=== PATIENT | male | born 1960 | race Caucasian/White ===

== ENCOUNTER 2016-06-29 12:29 | Emergency (ER) | payer BC, OTHER ==
[2016-06-29 12:59] LABS: BASO % 0.4 % (0.0-1.0); EOS # 0.1 K/mm3 (0.0-0.50); LARGE UNSTAINED CELL # 0.1 K/mm3 (0.0-0.4); LARGE UNSTAINED CELL % 2.1 % (0.0-4.0); LYMPH # 1.6 K/mm3 (1.5-4.5); LYMPH % 26.8 % (24.0-44.0); MEAN CORPUSCULAR HEMOGLOBIN 31.6 pg (27.0-33.0); MEAN CORPUSCULAR HGB CONC 34.9 g/dl (32.0-36.5); MEAN CORPUSCULAR VOLUME 90.5 fl (80.0-96.0); MONO # 0.4 K/mm3 (0.0-0.8); MONO % 6.9 % (0.0-5.0); NEUTROPHILS # 3.6 K/mm3 (1.8-7.7); NEUTROPHILS % 61.8 % (36.0-66.0); PLATELET COUNT, AUTOMATED 167 k/mm3 (150-450); RED CELL DISTRIBUTION WIDTH 12.1 % (11.5-14.5); WHITE BLOOD COUNT 5.8 K/mm3 (4.0-10.0)
[2016-06-29] MEDS ORDERED: ASPIRIN 81 MG CHEW TABLET As Ordered ONE (13:05)
[2016-06-29 13:06] LABS: INR 0.96
[2016-06-29 13:19] LABS: ANION GAP 9 MEQ/L (8-16); BLOOD UREA NITROGEN 24 MG/DL (7-18); CALCIUM LEVEL 8.5 MG/DL (8.5-10.1); CARBON DIOXIDE LEVEL 25 MEQ/L (21-32); CHLORIDE LEVEL 109 MEQ/L (98-107); CREATININE FOR GFR 1.04 MG/DL (0.70-1.30); GLOMERULAR FILTRATION RATE > 60.0 (>56); GLUCOSE, FASTING 91 MG/DL (70-105); POTASSIUM SERUM 3.9 MEQ/L (3.5-5.1); SODIUM LEVEL 143 MEQ/L (136-145)
--- NOTE | 2016-06-29 13:25 | REP ---
SINGLE VIEW CHEST: COMPARISON: 03/04/2015. There is no evidence of acute infiltrate. No pleural effusion is seen. The heart is normal in size. The mediastinal silhouette is unremarkable. The visualized osseous structures are intact. IMPRESSION: No acute pulmonary disease. Signed by Carl Mares MD 06/29/2016 03:22 P
--- NOTE | 2016-06-29 18:54 | EDDOCDS ---
Physician Documentation [facility] Name: Lorenzo Sprague Age: 55 yrs Sex: Male : 1960 Arrival Date: 06/29/2016 Time: 12:29 Bed 15 Private MD: Disposition: 06/29/16 18:41 Discharged to Home/Self Care. Impression: Chest pain, unspecified. - Condition is Stable. - Discharge Instructions: Nonspecific Chest Pain. - Medication Reconciliation, Local Pharmacy Hours form. - Follow up: Private Physician; When: 4 - 5 days; Reason: Recheck today's complaints, Continuance of care. Follow up: Lorenzo Carvalho; When: Call to arrange an appointment; Reason: Further diagnostic work-up, Recheck today's complaints, Continuance of care. - Problem is an ongoing problem. - Symptoms are unchanged. Historical: - Allergies: no known allergies; - Home Meds: 1. aspirin 81 mg Oral tab 1 tab once daily (Last dose: 06/29/2016) 2. Multivitamin Oral daily 3. med for cholerterol daily - PMHx: Hypercholesterolemia; - PSHx: none; - Social history: No barriers to communication noted, The patient speaks fluent Syriac, Smoking status: Patient states was never smoker of tobacco. - Family history: Not pertinent. - : The pt / caregiver states he / she is not on anticoagulants. Home medication list is obtained from the patient. - Exposure Risk Screening:: None identified. Vital Signs: 06/29 12:32 BP 142 / 87 (auto/); pml 12:34 Pulse 76 MON; Pulse Ox 95% ; pml 12:36 BP 142 / 87; Pulse 60; Resp 16; Pulse Ox 97% on R/A; Weight 83.46 kg / 184 lbs (R); kr3 Height 5 ft. 8 in. (172.72 cm) (R); 12:47 Pulse 64 MON; Pulse Ox 96% ; pml 12:47 BP 142 / 80 (auto/); pml 13:02 Pulse 62 MON; Pulse Ox 96% ; pml 13:02 BP 144 / 85 (auto/); pml 13:12 Pain 2/10; pml 13:16 Pulse 74 MON; Pulse Ox 94% ; pml 13:16 BP 118 / 69 (auto/); pml 13:17 Pulse 68 MON; Pulse Ox 94% ; pml 13:17 BP 117 / 70 (auto/); pml 13:32 Pulse 70 MON; Pulse Ox 95% ; pml 13:32 BP 112 / 62 (auto/); pml 13:47 Pulse 62 MON; Pulse Ox 96% ; pml 13:47 BP 108 / 69 (auto/); pml 14:02 Pulse 60 MON; Pulse Ox 95% ; pml 14:02 BP 102 / 69 (auto/); pml 14:17 Pulse 60 MON; Pulse Ox 96% ; pml 14:17 BP 107 / 73 (auto/); pml 14:32 BP 111 / 74 (auto/); jmb 14:32 Pulse 60 MON; Pulse Ox 96% ; jmb 14:48 BP 125 / 77 (auto/); jmb 14:48 Pulse 54 MON; Pulse Ox 95% ; jmb 15:02 BP 130 / 76 (auto/); jmb 15:02 Pulse 58 MON; Pulse Ox 96% ; jmb 15:17 BP 131 / 74 (auto/); jmb 15:17 Pulse 58 MON; Pulse Ox 96% ; jmb 15:32 BP 135 / 89 (auto/); jmb 15:32 Pulse 62 MON; Pulse Ox 96% ; jmb 15:47 BP 123 / 78 (auto/); jmb 15:47 Pulse 56 MON; Pulse Ox 95% ; jmb 16:02 BP 128 / 75 (auto/); jmb 16:02 Pulse 56 MON; Pulse Ox 95% ; jmb 16:17 BP 121 / 72 (auto/); jmb 16:17 Pulse 60 MON; Pulse Ox 95% ; jmb 16:32 BP 126 / 79 (auto/); jmb 16:32 Pulse 58 MON; Pulse Ox 96% ; jmb 16:47 BP 124 / 80 (auto/); jmb 16:47 Pulse 58 MON; Pulse Ox 94% ; jmb 17:02 BP 124 / 81 (auto/); jmb 17:02 Pulse 58 MON; Pulse Ox 95% ; jmb 17:17 BP 126 / 75 (auto/); jmb 17:17 Pulse 58 MON; Pulse Ox 94% ; jmb 17:32 BP 126 / 77 (auto/); jmb 17:32 Pulse 58 MON; Pulse Ox 95% ; jmb 17:47 BP 120 / 73 (auto/); jmb 17:47 Pulse 54 MON; Pulse Ox 96% ; jmb 18:02 BP 125 / 76 (auto/); jmb 18:02 Pulse 56 MON; Pulse Ox 96% ; jmb 18:17 BP 130 / 82 (auto/); jmb 18:17 Pulse 58 MON; Pulse Ox 95% ; jmb 18:32 BP 130 / 79 (auto/); jmb 18:32 Pulse 52 MON; Resp 18; Temp 97.0(O); Pulse Ox 95% on R/A; Pain 0/10; jmb 12:36 Body Mass Index 27.98 (83.46 kg, 172.72 cm) kr3 MDM: 12:31 ECG WITH READING ER PHYS+CARDIAG ordered. EDMS 12:50 Aspirin Chewable Tablet 324 mg PO once ordered. ke 12:50 NS 0.9% 1000 ml IV at 100 mL/hr continuous ordered. ke 12:50 Nitrostat 0.4 mg Sublingual every 5 minutes; hold if SBP<90mmHg.Document Pain Score ke Response to Each Dose x3 ordered. 12:50 Web Applications Developer/Pulse Ox/q 30 min VS ordered. ke 12:50 IV Saline Lock ordered. ke 12:50 Oxygen at 4L/Min NC or Home dosage ordered. ke 12:50 Rhythm Strip to chart ordered. ke 12:50 Undress patient appropriately for examination ordered. ke 12:51 Basic Metabolic Profile Ordered. EDMS 12:51 CBC with Diff Ordered. EDMS 12:51 Cardiac Injury Profile Ordered. EDMS 12:51 Troponin Ordered. EDMS 12:51 PT/INR Ordered. EDMS 12:52 portable chest Ordered. EDMS 13:28 Basic Metabolic Profile Reviewed. ke 13:28 CBC with Diff Reviewed. ke 13:28 Cardiac Injury Profile Reviewed. ke 13:28 Troponin Reviewed. ke 13:28 PT/INR Reviewed. ke 13:30 Redraw CIP &Troponin (put time in details section) ordered. ke 13:30 Repeat EKG (put time details section) ordered. ke 13:36 Repeat EKG (put time details section) complete. jrd 13:36 Redraw CIP &Troponin (put time in details section) complete. jrd 13:36 TROPONIN Ordered. EDMS 13:36 CARDIAC INJURY PROFILE Ordered. EDMS 13:37 ECG WITH READING ER PHYS ordered. EDMS 13:59 [facility] Payment Agreement was scanned into [employer] and attached to record. jp5 13:59 Financial registration complete. [email or web address] 18:37 TROPONIN Reviewed. alyse 18:37 CARDIAC INJURY PROFILE Reviewed. alyse 18:37 portable chest Reviewed. ke Administered Medications: 13:08 Drug: Nitrostat 0.4 mg [Nitrostat 0.4 mg sublingual tablet (1 tabs)] Route: Sublingual; jjr 13:12 Follow up: Pain 2/10 Adult; Response: Pain is decreased pml 13:11 Drug: Aspirin 324 mg [aspirin 81 mg chewable tablet (4 tabs)] Route: PO; jjr 13:11 Drug: NS 0.9% 1000 ml [sodium chloride 0.9 % intravenous solution] Route: IV; Rate: 100 jjr mL/hr; Site: left antecubital; 13:16 Drug: Nitrostat 0.4 mg [Nitrostat 0.4 mg sublingual tablet (1 tabs)] Route: Sublingual; pml Signatures: Dispatcher [employer] EDMS Shyam Townsend, PROGRAMS DIRECTOR PROGRAMS DIRECTOR Isabel Hernandez,RN RN kr3 Monalisa Rubi,RN RN Nasir Becker,RN RN jmb Wily Troncoso, LOAN COUNSELOR LOAN COUNSELOR Shiv Logan jp5 Maryann Saldana RN jjr The chart was reviewed and I authenticate all verbal orders and agree with the evaluation and treatment provided.Attachments: 13:59 [facility] Payment Agreement [email or web address]
--- NOTE | 2016-06-29 18:55 | EDDOCDS ---
Nurse's Notes [facility] Name: Lorenzo Sprague Age: 55 yrs Sex: Male : 1960 Arrival Date: 06/29/2016 Time: 12:29 Bed 15 Private MD: Diagnosis: Chest pain, unspecified Presentation: 06/29 12:33 Presenting complaint: Patient states: left sided chest pain with radiation into left kr3 arm for 45 minutes. 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 Adult Sepsis Screening: The patient does not have new or worsening altered mentation. Patient's respiratory rate is less than 22. Systolic blood pressure is greater than 100. Patient has a qSOFA score of 0- Negative Sepsis Screen. Suicide/Homicide risk assessment- the patient denies having any suicidal and/or homicidal ideations and does not present with any other emotional, behavioral or mental health complaints. 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 Transition of care: patient was not received from another setting of care. Red Flag criteria, patient assessed and taken directly to a bed. 12:33 Acuity: DEISI Level 2 kr3 12:33 Method Of Arrival: Wheelchair kr3 Triage Assessment: 12:36 General: Appears in no apparent distress, Behavior is appropriate for age, cooperative. kr3 Pain: Location: chest Pain currently is 0 out of 10 on a pain scale. At worst was 6 out of 10 on a pain scale. Pain radiates to left arm Is episodic. Pt Declines HIV testing. Cardiovascular: Chest pain is described as vague, radiates to left arm(s) episodes are intermittent began all morning. Respiratory: Respiratory effort is even, unlabored. GI: Denies nausea. Derm: Skin is normal. Historical: - Allergies: no known allergies; - Home Meds: 1. aspirin 81 mg Oral tab 1 tab once daily (Last dose: 06/29/2016) 2. Multivitamin Oral daily 3. med for cholerterol daily - PMHx: Hypercholesterolemia; - PSHx: none; - Social history: No barriers to communication noted, The patient speaks fluent Lao, Smoking status: Patient states was never smoker of tobacco. - Family history: Not pertinent. - : The pt / caregiver states he / she is not on anticoagulants. Home medication list is obtained from the patient. - Exposure Risk Screening:: None identified. Screenin:48 Screening information is obtained from the patient. Fall risk: No risks identified. pml Assistance ADL's: requires no assistance with activities of daily living. Abuse/DV Screen: The patient / caregiver reports he/she is: not in a situation that causes fear, pain or injury. Nutritional screening: No deficits noted. Advance Directives: Currently, there is no health care proxy. home support is adequate. Assessment: 12:48 General: Appears in no apparent distress, Behavior is appropriate for age, cooperative. pml Pain: Location: left arm Pain currently is 2 out of 10 on a pain scale. Quality of pain is described as aching, tingling. Neurological: Level of Consciousness is awake, alert, Oriented to person, place, time. Cardiovascular: Capillary refill < 3 seconds Rhythm is sinus rhythm No ectopy. Chest pain is described as severe, episodes are intermittent began one month ago with episodes of chest pain and indigestion which have resolved. today chest pain was worse than pt has experienced in past with more discomfort in left arm. chest pain is currently resolved while resting on stretcher but arm discomfort persists. Respiratory: Airway is patent Respiratory effort is even, unlabored, Respiratory pattern is regular, symmetrical, Breath sounds are clear bilaterally. Breath sounds are diminished in left posterior lower lobe. GI: Abdomen is non- distended Reports indigestion, nausea. Derm: Skin is pink, warm & dry. 13:07 General: reports brief episode of pain in mid chest radiating into left arm. medicated pml as indicated on emar. . 13:18 General: chest pain resolved, pain in left arm persists, 2/10. pml 13:29 General: reports pain in left arm is improved. resting quietly on stretcher, family at pml bedside. sinus rhythm on monitor, skin p/w/d. resps easy and unlabored.. 14:23 General: Appears in no apparent distress, Behavior is appropriate for age, cooperative. pml Pain: Denies pain. Neurological: Level of Consciousness is awake, alert, Oriented to person, place, time. Cardiovascular: Capillary refill < 3 seconds Rhythm is sinus rhythm No ectopy. Respiratory: Airway is patent Respiratory effort is even, unlabored. Derm: Skin is pink, warm & dry. 15:15 General: Appears in no apparent distress, comfortable, Behavior is appropriate for age, jmb cooperative. Pain: Denies pain. Neurological: Level of Consciousness is awake, alert, obeys commands, Oriented to person, place, time, Manager Domestic are equal bilaterally Speech is normal, Facial symmetry appears normal, Facial symmetry: tongue is midline. Cardiovascular: Capillary refill < 3 seconds Heart tones present Pulses are all present. Rhythm is sinus rhythm No ectopy. Respiratory: Airway is patent Respiratory effort is even, unlabored, Respiratory pattern is regular, symmetrical, Breath sounds are clear bilaterally. GI: Abdomen is non- distended Bowel sounds present X 4 quads. Abd is soft and non tender X 4 quads. Derm: Skin is pink, warm & dry. Musculoskeletal: Range of motion intact in all extremities. 15:54 General: Appears in no apparent distress, comfortable, Behavior is appropriate for age, jmb cooperative, Patient sitting on stretcher with family at bedside. NO voiced complaints at this time. . Neurological: Level of Consciousness is awake, alert, obeys commands, Oriented to person, place, time. Respiratory: Airway is patent Respiratory effort is even, unlabored, Respiratory pattern is regular, symmetrical. 17:08 General: Appears in no apparent distress, comfortable, Behavior is appropriate for age, jmb cooperative. Neurological: Level of Consciousness is awake, alert, obeys commands, Oriented to person, place, time. Respiratory: Airway is patent Respiratory effort is even, unlabored, Respiratory pattern is regular, symmetrical. 17:43 General: Appears in no apparent distress, comfortable, Behavior is appropriate for age, jmb cooperative, Patient laying on stretcher, labs drawn per provider orders. Patient denies pain and voices no complaints at this time. . Neurological: Level of Consciousness is awake, alert, obeys commands, Oriented to person, place, time. Respiratory: Airway is patent Respiratory effort is even, unlabored, Respiratory pattern is regular, symmetrical. 18:46 General: Patient instructed on discharge instructions. Patient asked if there were any b questions regarding discharge, patient stated no. IV discontinued per hospital policy. Patient signed discharge instructions. Patient discharged in stable condition. . Vital Signs: 12:32 BP 142 / 87 (auto/); pml 12:34 Pulse 76 MON; Pulse Ox 95% ; pml 12:36 BP 142 / 87; Pulse 60; Resp 16; Pulse Ox 97% on R/A; Weight 83.46 kg (R); Height 5 ft. kr3 8 in. (172.72 cm) (R); 12:47 Pulse 64 MON; Pulse Ox 96% ; pml 12:47 BP 142 / 80 (auto/); pml 13:02 Pulse 62 MON; Pulse Ox 96% ; pml 13:02 BP 144 / 85 (auto/); pml 13:12 Pain 2/10; pml 13:16 Pulse 74 MON; Pulse Ox 94% ; pml 13:16 BP 118 / 69 (auto/); pml 13:17 Pulse 68 MON; Pulse Ox 94% ; pml 13:17 BP 117 / 70 (auto/); pml 13:32 Pulse 70 MON; Pulse Ox 95% ; pml 13:32 BP 112 / 62 (auto/); pml 13:47 Pulse 62 MON; Pulse Ox 96% ; pml 13:47 BP 108 / 69 (auto/); pml 14:02 Pulse 60 MON; Pulse Ox 95% ; pml 14:02 BP 102 / 69 (auto/); pml 14:17 Pulse 60 MON; Pulse Ox 96% ; pml 14:17 BP 107 / 73 (auto/); pml 14:32 BP 111 / 74 (auto/); jmb 14:32 Pulse 60 MON; Pulse Ox 96% ; jmb 14:48 BP 125 / 77 (auto/); jmb 14:48 Pulse 54 MON; Pulse Ox 95% ; jmb 15:02 BP 130 / 76 (auto/); jmb 15:02 Pulse 58 MON; Pulse Ox 96% ; jmb 15:17 BP 131 / 74 (auto/); jmb 15:17 Pulse 58 MON; Pulse Ox 96% ; jmb 15:32 BP 135 / 89 (auto/); jmb 15:32 Pulse 62 MON; Pulse Ox 96% ; jmb 15:47 BP 123 / 78 (auto/); jmb 15:47 Pulse 56 MON; Pulse Ox 95% ; jmb 16:02 BP 128 / 75 (auto/); jmb 16:02 Pulse 56 MON; Pulse Ox 95% ; jmb 16:17 BP 121 / 72 (auto/); jmb 16:17 Pulse 60 MON; Pulse Ox 95% ; jmb 16:32 BP 126 / 79 (auto/); jmb 16:32 Pulse 58 MON; Pulse Ox 96% ; jmb 16:47 BP 124 / 80 (auto/); jmb 16:47 Pulse 58 MON; Pulse Ox 94% ; jmb 17:02 BP 124 / 81 (auto/); jmb 17:02 Pulse 58 MON; Pulse Ox 95% ; jmb 17:17 BP 126 / 75 (auto/); jmb 17:17 Pulse 58 MON; Pulse Ox 94% ; jmb 17:32 BP 126 / 77 (auto/); jmb 17:32 Pulse 58 MON; Pulse Ox 95% ; jmb 17:47 BP 120 / 73 (auto/); jmb 17:47 Pulse 54 MON; Pulse Ox 96% ; jmb 18:02 BP 125 / 76 (auto/); jmb 18:02 Pulse 56 MON; Pulse Ox 96% ; jmb 18:17 BP 130 / 82 (auto/); jmb 18:17 Pulse 58 MON; Pulse Ox 95% ; jmb 18:32 BP 130 / 79 (auto/); jmb 18:32 Pulse 52 MON; Resp 18; Temp 97.0(O); Pulse Ox 95% on R/A; Pain 0/10; jmb 12:36 Body Mass Index 27.98 (83.46 kg, 172.72 cm) kr3 Vitals: 12:36 Log In Time: June 29, 2016 at 12:33. kr3 ED Course: 12:29 Patient visited by Michaelle Blandon. mm15 12:29 Patient moved to Waiting mm15 12:30 Patient moved to 15 kr3 12:34 Triage Initiated kr3 12:39 Patient visited by Ketty Romero PCA. jlf 12:39 Patient visited by Ketty Romero PCA. jlf 12:39 EKG done. (by ED staff). Reviewed by Cara Madgaleno MD. jlf 12:44 Shyam Townsend FNP is PHCP. ke 12:44 Patient visited by Shyam Townsend FNP. ke 12:44 Patient visited by Shyam Townsend FNP. ke 12:48 The patient / caregiver is instructed regarding the plan of care and ED course. Patient trung has correct armband on for positive identification. Placed in gown. Bed in low position. Call light in reach. Side rails up X2. 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 Pulse ox on. NIBP on. 12:48 Inserted peripheral IV: 18gauge IV in left antecubital area and blood collected. pml Patient tolerated the procedure well. 12:50 Patient visited by Monalisa Rubi,NATHAN. pml 13:30 Patient visited by Monalisa Rubi,NATHAN. pml 13:44 Patient visited by Ketty Romero PCA. jlf 13:59 [facility] Payment Agreement was scanned into [employer] and attached to record. jp5 14:03 portable chest Returned. EDMS 14:21 Patient visited by Shyam Townsend FNP. ke 14:23 Patient visited by Monalisa Rubi,NATHAN. pml 14:58 Patient visited by Shyam Townsend FNP. ke 15:16 Patient visited by Nasir Melo RN. jmb 15:45 Patient visited by Shyam Townsend FNP. ke 15:54 Patient visited by Nasir Melo RN. jmb 16:25 Patient visited by Shyam Townsend FNP. ke 17:08 Patient visited by Nasir Melo RN. jmb 17:40 Patient visited by Ketty Romero PCA. jlf 17:41 Patient visited by Ketty Romero PCA. jlf 17:41 EKG done. (by ED staff). Reviewed by Shyam IZQUIERDO. jlf 17:42 CARDIAC INJURY PROFILE Sent. jmb 17:42 TROPONIN Sent. jmb 17:43 Patient visited by Nasir Melo RN. jmb 18:17 Patient visited by Shyam Townsend FNP. ke 18:32 Discontinued lock intact, bleeding controlled, pressure dressing applied, No jmb redness/swelling at site. No procedures done that require assistance. 18:41 Lorenzo Carvalho is Referral Physician. ke Administered Medications: 13:08 Drug: Nitrostat 0.4 mg [Nitrostat 0.4 mg sublingual tablet (1 tabs)] Route: Sublingual; jjr 13:12 Follow up: Pain 2/10 Adult; Response: Pain is decreased pml 13:11 Drug: Aspirin 324 mg [aspirin 81 mg chewable tablet (4 tabs)] Route: PO; jjr 13:11 Drug: NS 0.9% 1000 ml [sodium chloride 0.9 % intravenous solution] Route: IV; Rate: 100 jjr mL/hr; Site: left antecubital; 13:16 Drug: Nitrostat 0.4 mg [Nitrostat 0.4 mg sublingual tablet (1 tabs)] Route: Sublingual; pml Order Results: Lab Order: Basic Metabolic Profile; SPEC'M 06/29/16 12:46 Test: GLUCOSE, FASTING; Value: 91; Range: 70-105; Units: MG/DL; Status: F Test: BLOOD UREA NITROGEN; Value: 24; Range: 7-18; Abnormal: Above high normal; Units: MG/DL; Status: F Test: CREATININE FOR GFR; Value: 1.04; Range: 0.70-1.30; Units: MG/DL; Status: F Test: GLOMERULAR FILTRATION RATE; Value: > 60.0; Range: >56; Status: F Test: SODIUM LEVEL; Value: 143; Range: 136-145; Units: MEQ/L; Status: F Test: POTASSIUM SERUM; Value: 3.9; Range: 3.5-5.1; Units: MEQ/L; Status: F Test: CHLORIDE LEVEL; Value: 109; Range: 98-107; Abnormal: Above high normal; Units: MEQ/L; Status: F Test: CARBON DIOXIDE LEVEL; Value: 25; Range: 21-32; Units: MEQ/L; Status: F Test: ANION GAP; Value: 9; Range: 8-16; Units: MEQ/L; Status: F Test: CALCIUM LEVEL; Value: 8.5; Range: 8.5-10.1; Units: MG/DL; Status: F Test Note: ; Units are mL/min/1.73 m2 Chronic Kidney Disease Staging per NKF: Stage I & II GFR >=60 Normal to Mildly Decreased Stage III GFR 30-59 Moderately Decreased Stage IV GFR 15-29 Severely Decreased Stage V GFR <15 Very Little GFR Left ESRD GFR <15 on JOINERS SUPERVISOR Lab Order: CBC with Diff; SPEC'M 06/29/16 12:46 Test: WHITE BLOOD COUNT; Value: 5.8; Range: 4.0-10.0; Units: K/mm3; Status: F Test: RED BLOOD COUNT; Value: 4.86; Range: 4.30-6.10; Units: M/mm3; Status: F Test: HEMOGLOBIN; Value: 15.3; Range: 14.0-18.0; Units: g/dl; Status: F Test: HEMATOCRIT; Value: 43.9; Range: 42.0-52.0; Units: %; Status: F Test: MEAN CORPUSCULAR VOLUME; Value: 90.5; Range: 80.0-96.0; Units: fl; Status: F Test: MEAN CORPUSCULAR HEMOGLOBIN; Value: 31.6; Range: 27.0-33.0; Units: pg; Status: F Test: MEAN CORPUSCULAR HGB CONC; Value: 34.9; Range: 32.0-36.5; Units: g/dl; Status: F Test: RED CELL DISTRIBUTION WIDTH; Value: 12.1; Range: 11.5-14.5; Units: %; Status: F Test: PLATELET COUNT, AUTOMATED; Value: 167; Range: 150-450; Units: k/mm3; Status: F Test: NEUTROPHILS %; Value: 61.8; Range: 36.0-66.0; Units: %; Status: F Test: LYMPH %; Value: 26.8; Range: 24.0-44.0; Units: %; Status: F Test: MONO %; Value: 6.9; Range: 0.0-5.0; Abnormal: Above high normal; Units: %; Status: F Test: EOS %; Value: 2.0; Range: 0.0-3.0; Units: %; Status: F Test: BASO %; Value: 0.4; Range: 0.0-1.0; Units: %; Status: F Test: LARGE UNSTAINED CELL %; Value: 2.1; Range: 0.0-4.0; Units: %; Status: F Test: NEUTROPHILS #; Value: 3.6; Range: 1.8-7.7; Units: K/mm3; Status: F Test: LYMPH #; Value: 1.6; Range: 1.5-4.5; Units: K/mm3; Status: F Test: MONO #; Value: 0.4; Range: 0.0-0.8; Units: K/mm3; Status: F Test: EOS #; Value: 0.1; Range: 0.0-0.50; Units: K/mm3; Status: F Test: BASO #; Value: 0.0; Range: 0.0-0.2; Units: K/mm3; Status: F Test: LARGE UNSTAINED CELL #; Value: 0.1; Range: 0.0-0.4; Units: K/mm3; Status: F Lab Order: Cardiac Injury Profile; [facility]' 06/29/16 12:46 Test: CPK CREATINE PHOSPHOKINASE; Value: 333; Range: 39-308; Abnormal: Above high normal; Units: U/L; Status: F Test: CK-MB VALUE MASS; Value: 2.8; Range: 0.0-3.6; Units: NG/ML; Status: F Test: MB/CK RELATIVE INDEX; Value: 0.84; Range: < OR =4; Status: F Test Note: ; DIAGNOSIS CRITERIA MMB ng/ml Relative Index (RI) NON-AMI < or = 5 N/A MARES ZONE > 5 < or = 4 AMI > 5 > 4 Lab Order: Troponin; SPEC' 06/29/16 12:46 Test: TROPONIN I; Value: < 0.02; Range: < 0.10; Units: NG/ML; Status: F Test Note: ; Troponin I Reference Interval for [employer] LOCI: 99th Percentile= 0.00-0.045 ng/ml Risk Stratification: <= 0.10 ng/ml Decreased Risk for Adverse Clinical Events. 0.10-1.50 ng/ml Increased Risk for Adverse Clinical Events. Evaluation of additional criterion and/or repeat testing in 2-6 hours is suggested to rule out myocardial damage. >= 1.50 ng/ml Indicative of Myocardial Injury. Lab Order: PT/INR; [facility]' 06/29/16 12:46 Test: PROTHROMBIN TIME; Value: 12.9; Range: 12.3-14.5; Units: SECONDS; Status: F Test: INR; Value: 0.96; Status: F Test Note: ; THERAPUTIC HUMAN INR VALUES INDICATIONS NORMAL RANGES PROPHYLAXIS/TREATMENT OF: VENOUS THROMBOSIS 2.0-3.0 PULMONARY EMBOLISM 2.0-3.0 PREVENTION OF SYSTEMIC EMBOLISM FROM: TISSUE HEART VALVES 2.0-3.0 ACUTE MYOCARDIAL INFARCTION 2.0-3.0 VALVULAR HEART DISEASE 2.0-3.0 ATRIAL FIBRILLATION 2.0-3.0 MECHANICAL VALVES(HIGH RISK) 2.5-3.5 RECURRENT MYOCARDIAL INFARCTION 2.5-3.5 Lab Order: TROPONIN; SPEC'M 06/29/16 17:41 Test: TROPONIN I; Value: < 0.02; Range: < 0.10; Units: NG/ML; Status: F Test Note: ; Troponin I Reference Interval for [employer] [place] LOCI: 99th Percentile= 0.00-0.045 ng/ml Risk Stratification: <= 0.10 ng/ml Decreased Risk for Adverse Clinical Events. 0.10-1.50 ng/ml Increased Risk for Adverse Clinical Events. Evaluation of additional criterion and/or repeat testing in 2-6 hours is suggested to rule out myocardial damage. >= 1.50 ng/ml Indicative of Myocardial Injury. Lab Order: CARDIAC INJURY PROFILE; SPEC'M 06/29/16 17:41 Test: CPK CREATINE PHOSPHOKINASE; Value: 289; Range: 39-308; Units: U/L; Status: F Test: CK-MB VALUE MASS; Value: 2.5; Range: 0.0-3.6; Units: NG/ML; Status: F Test: MB/CK RELATIVE INDEX; Value: 0.86; Range: < OR =4; Status: F Test Note: ; DIAGNOSIS CRITERIA MMB ng/ml Relative Index (RI) NON-AMI < or = 5 N/A MARES ZONE > 5 < or = 4 AMI > 5 > 4 Radiology Order: portable chest Test: portable chest REASON FOR EXAMINATION: Chest Pain; SINGLE VIEW CHEST:; ; COMPARISON: 03/04/2015.; ; There is no evidence of acute infiltrate.; ; No pleural effusion is seen.; ; The heart is normal in size.; ; The mediastinal silhouette is unremarkable.; ; The visualized osseous structures are intact.; ; IMPRESSION:; ; No acute pulmonary disease.; ; ; Signed by; Carl Mares MD 06/29/2016 03:22 P; Outcome: 18:32 Discharge Assessment: Patient awake, alert and oriented x 3. No cognitive and/or jmb functional deficits noted. Patient verbalized understanding of disposition instructions. Patient awake and alert. obeys commands, Oriented to person, place and time. Patient verbalized understanding of disposition instructions. Patient has no functional deficits. patient administered narcotics - no. The following High Risk Discharge criteria are identified: None. Discharged to home ambulatory, with significant other. Condition: stable. Discharge instructions given to patient, Instructed on discharge instructions, follow up and referral plans. Demonstrated understanding of instructions, Pt was receptive of discharge instructions/ teaching. No special radiology studies were completed. Property sent home with patient. 18:41 Discharge ordered by Provider. alyse 18:54 Patient left the ED. ar Signatures: Dispatcher [employer] EDMS Shyam Townsend FNP CERTIFIED NURSES' AIDE Isabel Hernandez,RN RN kr3 Maryann Saldana, RN RN Monalisa Segura,RN Michaelle Leija mm15 Nasir Melo,RN RN eKtty Chapin PCA MUCK MINER BLASTING Shiv Cisneros jp5 MTDD
--- NOTE | 2016-07-01 08:13 | ECGEPIP ---
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
--- NOTE | 2016-07-01 19:55 | EDDOCDS ---
Nurse's Notes [facility] Name: Armani Luo Age: 55 yrs Sex: Male : 1960 Arrival Date: 06/29/2016 Time: 12:29 Bed 15 Private MD: Diagnosis: Chest pain, unspecified Presentation: 06/29 12:33 Presenting complaint: Patient states: left sided chest pain with radiation into left kr3 arm for 45 minutes. 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 Adult Sepsis Screening: The patient does not have new or worsening altered mentation. Patient's respiratory rate is less than 22. Systolic blood pressure is greater than 100. Patient has a qSOFA score of 0- Negative Sepsis Screen. Suicide/Homicide risk assessment- the patient denies having any suicidal and/or homicidal ideations and does not present with any other emotional, behavioral or mental health complaints. Status: Patient is not a real estate services coordinator or dependent. Transition of care: patient was not received from another setting of care. Red Flag criteria, patient assessed and taken directly to a bed. 12:33 Acuity: DEISI Level 2 kr3 12:33 Method Of Arrival: Wheelchair kr3 Triage Assessment: 12:36 General: Appears in no apparent distress, Behavior is appropriate for age, cooperative. kr3 Pain: Location: chest Pain currently is 0 out of 10 on a pain scale. At worst was 6 out of 10 on a pain scale. Pain radiates to left arm Is episodic. Pt Declines HIV testing. Cardiovascular: Chest pain is described as vague, radiates to left arm(s) episodes are intermittent began all morning. Respiratory: Respiratory effort is even, unlabored. GI: Denies nausea. Derm: Skin is normal. Historical: - Allergies: no known allergies; - Home Meds: 1. aspirin 81 mg Oral tab 1 tab once daily (Last dose: 06/29/2016) 2. Multivitamin Oral daily 3. med for cholerterol daily - PMHx: Hypercholesterolemia; - PSHx: none; - Social history: No barriers to communication noted, The patient speaks fluent Occitan, Smoking status: Patient states was never smoker of tobacco. - Family history: Not pertinent. - : The pt / caregiver states he / she is not on anticoagulants. Home medication list is obtained from the patient. - Exposure Risk Screening:: None identified. Screenin:48 Screening information is obtained from the patient. Fall risk: No risks identified. pml Assistance ADL's: requires no assistance with activities of daily living. Abuse/DV Screen: The patient / caregiver reports he/she is: not in a situation that causes fear, pain or injury. Nutritional screening: No deficits noted. Advance Directives: Currently, there is no health care proxy. home support is adequate. Assessment: 12:48 General: Appears in no apparent distress, Behavior is appropriate for age, cooperative. pml Pain: Location: left arm Pain currently is 2 out of 10 on a pain scale. Quality of pain is described as aching, tingling. Neurological: Level of Consciousness is awake, alert, Oriented to person, place, time. Cardiovascular: Capillary refill < 3 seconds Rhythm is sinus rhythm No ectopy. Chest pain is described as severe, episodes are intermittent began one month ago with episodes of chest pain and indigestion which have resolved. today chest pain was worse than pt has experienced in past with more discomfort in left arm. chest pain is currently resolved while resting on stretcher but arm discomfort persists. Respiratory: Airway is patent Respiratory effort is even, unlabored, Respiratory pattern is regular, symmetrical, Breath sounds are clear bilaterally. Breath sounds are diminished in left posterior lower lobe. GI: Abdomen is non- distended Reports indigestion, nausea. Derm: Skin is pink, warm & dry. 13:07 General: reports brief episode of pain in mid chest radiating into left arm. medicated pml as indicated on emar. . 13:18 General: chest pain resolved, pain in left arm persists, 2/10. pml 13:29 General: reports pain in left arm is improved. resting quietly on stretcher, family at pml bedside. sinus rhythm on monitor, skin p/w/d. resps easy and unlabored.. 14:23 General: Appears in no apparent distress, Behavior is appropriate for age, cooperative. pml Pain: Denies pain. Neurological: Level of Consciousness is awake, alert, Oriented to person, place, time. Cardiovascular: Capillary refill < 3 seconds Rhythm is sinus rhythm No ectopy. Respiratory: Airway is patent Respiratory effort is even, unlabored. Derm: Skin is pink, warm & dry. 15:15 General: Appears in no apparent distress, comfortable, Behavior is appropriate for age, jmb cooperative. Pain: Denies pain. Neurological: Level of Consciousness is awake, alert, obeys commands, Oriented to person, place, time, [place] are equal bilaterally Speech is normal, Facial symmetry appears normal, Facial symmetry: tongue is midline. Cardiovascular: Capillary refill < 3 seconds Heart tones present Pulses are all present. Rhythm is sinus rhythm No ectopy. Respiratory: Airway is patent Respiratory effort is even, unlabored, Respiratory pattern is regular, symmetrical, Breath sounds are clear bilaterally. GI: Abdomen is non- distended Bowel sounds present X 4 quads. Abd is soft and non tender X 4 quads. Derm: Skin is pink, warm & dry. Musculoskeletal: Range of motion intact in all extremities. 15:54 General: Appears in no apparent distress, comfortable, Behavior is appropriate for age, jmb cooperative, Patient sitting on stretcher with family at bedside. NO voiced complaints at this time. . Neurological: Level of Consciousness is awake, alert, obeys commands, Oriented to person, place, time. Respiratory: Airway is patent Respiratory effort is even, unlabored, Respiratory pattern is regular, symmetrical. 17:08 General: Appears in no apparent distress, comfortable, Behavior is appropriate for age, jmb cooperative. Neurological: Level of Consciousness is awake, alert, obeys commands, Oriented to person, place, time. Respiratory: Airway is patent Respiratory effort is even, unlabored, Respiratory pattern is regular, symmetrical. 17:43 General: Appears in no apparent distress, comfortable, Behavior is appropriate for age, jmb cooperative, Patient laying on stretcher, labs drawn per provider orders. Patient denies pain and voices no complaints at this time. . Neurological: Level of Consciousness is awake, alert, obeys commands, Oriented to person, place, time. Respiratory: Airway is patent Respiratory effort is even, unlabored, Respiratory pattern is regular, symmetrical. 18:46 General: Patient instructed on discharge instructions. Patient asked if there were any b questions regarding discharge, patient stated no. IV discontinued per hospital policy. Patient signed discharge instructions. Patient discharged in stable condition. . Vital Signs: 12:32 BP 142 / 87 (auto/); pml 12:34 Pulse 76 MON; Pulse Ox 95% ; pml 12:36 BP 142 / 87; Pulse 60; Resp 16; Pulse Ox 97% on R/A; Weight 83.46 kg (R); Height 5 ft. kr3 8 in. (172.72 cm) (R); 12:47 Pulse 64 MON; Pulse Ox 96% ; pml 12:47 BP 142 / 80 (auto/); pml 13:02 Pulse 62 MON; Pulse Ox 96% ; pml 13:02 BP 144 / 85 (auto/); pml 13:12 Pain 2/10; pml 13:16 Pulse 74 MON; Pulse Ox 94% ; pml 13:16 BP 118 / 69 (auto/); pml 13:17 Pulse 68 MON; Pulse Ox 94% ; pml 13:17 BP 117 / 70 (auto/); pml 13:32 Pulse 70 MON; Pulse Ox 95% ; pml 13:32 BP 112 / 62 (auto/); pml 13:47 Pulse 62 MON; Pulse Ox 96% ; pml 13:47 BP 108 / 69 (auto/); pml 14:02 Pulse 60 MON; Pulse Ox 95% ; pml 14:02 BP 102 / 69 (auto/); pml 14:17 Pulse 60 MON; Pulse Ox 96% ; pml 14:17 BP 107 / 73 (auto/); pml 14:32 BP 111 / 74 (auto/); jmb 14:32 Pulse 60 MON; Pulse Ox 96% ; jmb 14:48 BP 125 / 77 (auto/); jmb 14:48 Pulse 54 MON; Pulse Ox 95% ; jmb 15:02 BP 130 / 76 (auto/); jmb 15:02 Pulse 58 MON; Pulse Ox 96% ; jmb 15:17 BP 131 / 74 (auto/); jmb 15:17 Pulse 58 MON; Pulse Ox 96% ; jmb 15:32 BP 135 / 89 (auto/); jmb 15:32 Pulse 62 MON; Pulse Ox 96% ; jmb 15:47 BP 123 / 78 (auto/); jmb 15:47 Pulse 56 MON; Pulse Ox 95% ; jmb 16:02 BP 128 / 75 (auto/); jmb 16:02 Pulse 56 MON; Pulse Ox 95% ; jmb 16:17 BP 121 / 72 (auto/); jmb 16:17 Pulse 60 MON; Pulse Ox 95% ; jmb 16:32 BP 126 / 79 (auto/); jmb 16:32 Pulse 58 MON; Pulse Ox 96% ; jmb 16:47 BP 124 / 80 (auto/); jmb 16:47 Pulse 58 MON; Pulse Ox 94% ; jmb 17:02 BP 124 / 81 (auto/); jmb 17:02 Pulse 58 MON; Pulse Ox 95% ; jmb 17:17 BP 126 / 75 (auto/); jmb 17:17 Pulse 58 MON; Pulse Ox 94% ; jmb 17:32 BP 126 / 77 (auto/); jmb 17:32 Pulse 58 MON; Pulse Ox 95% ; jmb 17:47 BP 120 / 73 (auto/); jmb 17:47 Pulse 54 MON; Pulse Ox 96% ; jmb 18:02 BP 125 / 76 (auto/); jmb 18:02 Pulse 56 MON; Pulse Ox 96% ; jmb 18:17 BP 130 / 82 (auto/); jmb 18:17 Pulse 58 MON; Pulse Ox 95% ; jmb 18:32 BP 130 / 79 (auto/); jmb 18:32 Pulse 52 MON; Resp 18; Temp 97.0(O); Pulse Ox 95% on R/A; Pain 0/10; jmb 12:36 Body Mass Index 27.98 (83.46 kg, 172.72 cm) kr3 Vitals: 12:36 Log In Time: June 29, 2016 at 12:33. kr3 ED Course: 12:29 Patient visited by Michaelle Blandon. mm15 12:29 Patient moved to Waiting mm15 12:30 Patient moved to 15 kr3 12:34 Triage Initiated kr3 12:39 Patient visited by Ketty Romero PCA. jlf 12:39 Patient visited by Ketty Romero PCA. jlf 12:39 EKG done. (by ED staff). Reviewed by Cara Magdaleno MD. jlf 12:44 Shyam Townsend FNP is PHCP. ke 12:44 Patient visited by Shyam Townsend FNP. ke 12:44 Patient visited by Shyam Townsend FNP. ke 12:48 The patient / caregiver is instructed regarding the plan of care and ED course. Patient trung has correct armband on for positive identification. Placed in gown. Bed in low position. Call light in reach. Side rails up X2. pvc monitor on. Pulse ox on. NIBP on. 12:48 Inserted peripheral IV: 18gauge IV in left antecubital area and blood collected. pml Patient tolerated the procedure well. 12:50 Patient visited by Monalisa Rubi,NATHAN. pml 13:30 Patient visited by Monalisa Rubi,NATHAN. pml 13:44 Patient visited by Ketty Romero PCA. jlf 13:59 [facility] Payment Agreement was scanned into [employer] and attached to record. jp5 14:03 portable chest Returned. EDMS 14:21 Patient visited by Shyam Townsend FNP. ke 14:23 Patient visited by Monalisa Rubi,NATHAN. pml 14:58 Patient visited by Shyam Townsend FNP. ke 15:16 Patient visited by Nasir Melo RN. jmb 15:45 Patient visited by Shyam Townsend FNP. ke 15:54 Patient visited by Nasir Melo RN. jmb 16:25 Patient visited by Shyam Townsend FNP. ke 17:08 Patient visited by Nasir Melo RN. jmb 17:40 Patient visited by Ketty Romero PCA. jlf 17:41 Patient visited by Ketty Romero PCA. jlf 17:41 EKG done. (by ED staff). Reviewed by Shyam IZQUIERDO. jlf 17:42 CARDIAC INJURY PROFILE Sent. jmb 17:42 TROPONIN Sent. jmb 17:43 Patient visited by Nasir Melo RN. jmb 18:17 Patient visited by Shyam Townsend FNP. ke 18:32 Discontinued lock intact, bleeding controlled, pressure dressing applied, No jmb redness/swelling at site. No procedures done that require assistance. 18:41 Armani Carvalho is Referral Physician. ke 06/30 08:04 T-Sheet-- Draft Copy was scanned into [employer] and attached to record. gb 13:07 ECG/EKG was scanned into [employer] and attached to record. gb 07/01 08:38 EKG-ADULT Returned. EDMS Administered Medications: 06/29 13:08 Drug: Nitrostat 0.4 mg [Nitrostat 0.4 mg sublingual tablet (1 tabs)] Route: Sublingual; jjr 13:12 Follow up: Pain 2/10 Adult; Response: Pain is decreased pml 13:11 Drug: Aspirin 324 mg [aspirin 81 mg chewable tablet (4 tabs)] Route: PO; jjr 13:11 Drug: NS 0.9% 1000 ml [sodium chloride 0.9 % intravenous solution] Route: IV; Rate: 100 jjr mL/hr; Site: left antecubital; 13:16 Drug: Nitrostat 0.4 mg [Nitrostat 0.4 mg sublingual tablet (1 tabs)] Route: Sublingual; pml Order Results: Lab Order: Basic Metabolic Profile; SPEC'M 06/29/16 12:46 Test: GLUCOSE, FASTING; Value: 91; Range: 70-105; Units: MG/DL; Status: F Test: BLOOD UREA NITROGEN; Value: 24; Range: 7-18; Abnormal: Above high normal; Units: MG/DL; Status: F Test: CREATININE FOR GFR; Value: 1.04; Range: 0.70-1.30; Units: MG/DL; Status: F Test: GLOMERULAR FILTRATION RATE; Value: > 60.0; Range: >56; Status: F Test: SODIUM LEVEL; Value: 143; Range: 136-145; Units: MEQ/L; Status: F Test: POTASSIUM SERUM; Value: 3.9; Range: 3.5-5.1; Units: MEQ/L; Status: F Test: CHLORIDE LEVEL; Value: 109; Range: 98-107; Abnormal: Above high normal; Units: MEQ/L; Status: F Test: CARBON DIOXIDE LEVEL; Value: 25; Range: 21-32; Units: MEQ/L; Status: F Test: ANION GAP; Value: 9; Range: 8-16; Units: MEQ/L; Status: F Test: CALCIUM LEVEL; Value: 8.5; Range: 8.5-10.1; Units: MG/DL; Status: F Test Note: ; Units are mL/min/1.73 m2 Chronic Kidney Disease Staging per NKF: Stage I & II GFR >=60 Normal to Mildly Decreased Stage III GFR 30-59 Moderately Decreased Stage IV GFR 15-29 Severely Decreased Stage V GFR <15 Very Little GFR Left ESRD GFR <15 on DRYING RACK CHANGER Lab Order: CBC with Diff; SPEC'M 06/29/16 12:46 Test: WHITE BLOOD COUNT; Value: 5.8; Range: 4.0-10.0; Units: K/mm3; Status: F Test: RED BLOOD COUNT; Value: 4.86; Range: 4.30-6.10; Units: M/mm3; Status: F Test: HEMOGLOBIN; Value: 15.3; Range: 14.0-18.0; Units: g/dl; Status: F Test: HEMATOCRIT; Value: 43.9; Range: 42.0-52.0; Units: %; Status: F Test: MEAN CORPUSCULAR VOLUME; Value: 90.5; Range: 80.0-96.0; Units: fl; Status: F Test: MEAN CORPUSCULAR HEMOGLOBIN; Value: 31.6; Range: 27.0-33.0; Units: pg; Status: F Test: MEAN CORPUSCULAR HGB CONC; Value: 34.9; Range: 32.0-36.5; Units: g/dl; Status: F Test: RED CELL DISTRIBUTION WIDTH; Value: 12.1; Range: 11.5-14.5; Units: %; Status: F Test: PLATELET COUNT, AUTOMATED; Value: 167; Range: 150-450; Units: k/mm3; Status: F Test: NEUTROPHILS %; Value: 61.8; Range: 36.0-66.0; Units: %; Status: F Test: LYMPH %; Value: 26.8; Range: 24.0-44.0; Units: %; Status: F Test: MONO %; Value: 6.9; Range: 0.0-5.0; Abnormal: Above high normal; Units: %; Status: F Test: EOS %; Value: 2.0; Range: 0.0-3.0; Units: %; Status: F Test: BASO %; Value: 0.4; Range: 0.0-1.0; Units: %; Status: F Test: LARGE UNSTAINED CELL %; Value: 2.1; Range: 0.0-4.0; Units: %; Status: F Test: NEUTROPHILS #; Value: 3.6; Range: 1.8-7.7; Units: K/mm3; Status: F Test: LYMPH #; Value: 1.6; Range: 1.5-4.5; Units: K/mm3; Status: F Test: MONO #; Value: 0.4; Range: 0.0-0.8; Units: K/mm3; Status: F Test: EOS #; Value: 0.1; Range: 0.0-0.50; Units: K/mm3; Status: F Test: BASO #; Value: 0.0; Range: 0.0-0.2; Units: K/mm3; Status: F Test: LARGE UNSTAINED CELL #; Value: 0.1; Range: 0.0-0.4; Units: K/mm3; Status: F Lab Order: Cardiac Injury Profile; [facility]' 06/29/16 12:46 Test: CPK CREATINE PHOSPHOKINASE; Value: 333; Range: 39-308; Abnormal: Above high normal; Units: U/L; Status: F Test: CK-MB VALUE MASS; Value: 2.8; Range: 0.0-3.6; Units: NG/ML; Status: F Test: MB/CK RELATIVE INDEX; Value: 0.84; Range: < OR =4; Status: F Test Note: ; DIAGNOSIS CRITERIA MMB ng/ml Relative Index (RI) NON-AMI < or = 5 N/A MARES [place]ONE > 5 < or = 4 AMI > 5 > 4 Lab Order: Troponin; [facility]' 06/29/16 12:46 Test: TROPONIN I; Value: < 0.02; Range: < 0.10; Units: NG/ML; Status: F Test Note: ; Troponin I Reference Interval for [facility] LOCI: 99th Percentile= 0.00-0.045 ng/ml Risk Stratification: <= 0.10 ng/ml Decreased Risk for Adverse Clinical Events. 0.10-1.50 ng/ml Increased Risk for Adverse Clinical Events. Evaluation of additional criterion and/or repeat testing in 2-6 hours is suggested to rule out myocardial damage. >= 1.50 ng/ml Indicative of Myocardial Injury. Lab Order: PT/INR; [facility]' 06/29/16 12:46 Test: PROTHROMBIN TIME; Value: 12.9; Range: 12.3-14.5; Units: SECONDS; Status: F Test: INR; Value: 0.96; Status: F Test Note: ; THERAPUTIC HUMAN INR VALUES INDICATIONS NORMAL RANGES PROPHYLAXIS/TREATMENT OF: VENOUS THROMBOSIS 2.0-3.0 PULMONARY EMBOLISM 2.0-3.0 PREVENTION OF SYSTEMIC EMBOLISM FROM: TISSUE HEART VALVES 2.0-3.0 ACUTE MYOCARDIAL INFARCTION 2.0-3.0 VALVULAR HEART DISEASE 2.0-3.0 ATRIAL FIBRILLATION 2.0-3.0 MECHANICAL VALVES(HIGH RISK) 2.5-3.5 RECURRENT MYOCARDIAL INFARCTION 2.5-3.5 Lab Order: TROPONIN; SPEC'M 06/29/16 17:41 Test: TROPONIN I; Value: < 0.02; Range: < 0.10; Units: NG/ML; Status: F Test Note: ; Troponin I Reference Interval for [facility] LOCI: 99th Percentile= 0.00-0.045 ng/ml Risk Stratification: <= 0.10 ng/ml Decreased Risk for Adverse Clinical Events. 0.10-1.50 ng/ml Increased Risk for Adverse Clinical Events. Evaluation of additional criterion and/or repeat testing in 2-6 hours is suggested to rule out myocardial damage. >= 1.50 ng/ml Indicative of Myocardial Injury. Lab Order: CARDIAC INJURY PROFILE; SPEC'M 06/29/16 17:41 Test: CPK CREATINE PHOSPHOKINASE; Value: 289; Range: 39-308; Units: U/L; Status: F Test: CK-MB VALUE MASS; Value: 2.5; Range: 0.0-3.6; Units: NG/ML; Status: F Test: MB/CK RELATIVE INDEX; Value: 0.86; Range: < OR =4; Status: F Test Note: ; DIAGNOSIS CRITERIA MMB ng/ml Relative Index (RI) NON-AMI < or = 5 N/A MARES ZONE > 5 < or = 4 AMI > 5 > 4 Radiology Order: EKG-ADULT Test: EKG-ADULT REASON FOR EXAMINATION: Chest Pain; Stationary ECG Study; [facility] - ED; ; Test Date: 2016-06-29; Pat Name: ARMANI LUO Department:; Room: -; Gender: M National Recruiter: alisia; : 1960 Requested By: CARA Stewart; Order Number: [id number] Reading MD: Michaela Mane; Measurements; Intervals [place]; Rate: 62 P: 46; HI: 177 QRS: 29; QRSD: 114 T: 3; QT: 395; QTc: 402; Interpretive Statements; SINUS RHYTHM WITH SINUS ARRHYTHMIA; MODERATE INTRAVENTRICULAR CONDUCTION DELAY; NSTTW ABNORMALITY; DECREASED RATE 03/04/15; Electronically Signed On 07-01-2016 8:13:13 EST by Michaela Mane; Radiology Order: portable chest Test: portable chest REASON FOR EXAMINATION: Chest Pain; SINGLE VIEW CHEST:; ; COMPARISON: 03/04/2015.; ; There is no evidence of acute infiltrate.; ; No pleural effusion is seen.; ; The heart is normal in size.; ; The mediastinal silhouette is unremarkable.; ; The visualized osseous structures are intact.; ; IMPRESSION:; ; No acute pulmonary disease.; ; ; Signed by; Carl Mares MD 06/29/2016 03:22 P; Outcome: 18:32 Discharge Assessment: Patient awake, alert and oriented x 3. No cognitive and/or jmb functional deficits noted. Patient verbalized understanding of disposition instructions. Patient awake and alert. obeys commands, Oriented to person, place and time. Patient verbalized understanding of disposition instructions. Patient has no functional deficits. patient administered narcotics - no. The following High Risk Discharge criteria are identified: None. Discharged to home ambulatory, with significant other. Condition: stable. Discharge instructions given to patient, Instructed on discharge instructions, follow up and referral plans. Demonstrated understanding of instructions, Pt was receptive of discharge instructions/ teaching. No special radiology studies were completed. Property sent home with patient. 18:41 Discharge ordered by Provider. ke 18:54 Patient left the ED. ar Signatures: Dispatcher [employer] EDMS Lizet Lemon, Shyam Whiteside, REGIONAL MANAGER REGIONAL MANAGER Isabel Hernandez,Maryann Cunningham RN, RN Monalisa Butler,Michaelle Leija RN mm15 Nasir Melo RN RN jmb [place], Jordain, PCA PCA jlf Price, Jennalee jp5 Chart Complete MTDD
--- NOTE | 2016-07-01 19:55 | EDDOCDS ---
Physician Documentation [facility] Name: Lorenzo Sprague Age: 55 yrs Sex: Male : 1960 Arrival Date: 06/29/2016 Time: 12:29 Bed 15 Private MD: Disposition: 06/29/16 18:41 Discharged to Home/Self Care. Impression: Chest pain, unspecified. - Condition is Stable. - Discharge Instructions: Nonspecific Chest Pain. - Medication Reconciliation, Local Pharmacy Hours form. - Follow up: Private Physician; When: 4 - 5 days; Reason: Recheck today's complaints, Continuance of care. Follow up: Lorenzo Carvalho; When: Call to arrange an appointment; Reason: Further diagnostic work-up, Recheck today's complaints, Continuance of care. - Problem is an ongoing problem. - Symptoms are unchanged. Historical: - Allergies: no known allergies; - Home Meds: 1. aspirin 81 mg Oral tab 1 tab once daily (Last dose: 06/29/2016) 2. Multivitamin Oral daily 3. med for cholerterol daily - PMHx: Hypercholesterolemia; - PSHx: none; - Social history: No barriers to communication noted, The patient speaks fluent Sami, Smoking status: Patient states was never smoker of tobacco. - Family history: Not pertinent. - : The pt / caregiver states he / she is not on anticoagulants. Home medication list is obtained from the patient. - Exposure Risk Screening:: None identified. Vital Signs: 06/29 12:32 BP 142 / 87 (auto/); pml 12:34 Pulse 76 MON; Pulse Ox 95% ; pml 12:36 BP 142 / 87; Pulse 60; Resp 16; Pulse Ox 97% on R/A; Weight 83.46 kg / 184 lbs (R); kr3 Height 5 ft. 8 in. (172.72 cm) (R); 12:47 Pulse 64 MON; Pulse Ox 96% ; pml 12:47 BP 142 / 80 (auto/); pml 13:02 Pulse 62 MON; Pulse Ox 96% ; pml 13:02 BP 144 / 85 (auto/); pml 13:12 Pain 2/10; pml 13:16 Pulse 74 MON; Pulse Ox 94% ; pml 13:16 BP 118 / 69 (auto/); pml 13:17 Pulse 68 MON; Pulse Ox 94% ; pml 13:17 BP 117 / 70 (auto/); pml 13:32 Pulse 70 MON; Pulse Ox 95% ; pml 13:32 BP 112 / 62 (auto/); pml 13:47 Pulse 62 MON; Pulse Ox 96% ; pml 13:47 BP 108 / 69 (auto/); pml 14:02 Pulse 60 MON; Pulse Ox 95% ; pml 14:02 BP 102 / 69 (auto/); pml 14:17 Pulse 60 MON; Pulse Ox 96% ; pml 14:17 BP 107 / 73 (auto/); pml 14:32 BP 111 / 74 (auto/); jmb 14:32 Pulse 60 MON; Pulse Ox 96% ; jmb 14:48 BP 125 / 77 (auto/); jmb 14:48 Pulse 54 MON; Pulse Ox 95% ; jmb 15:02 BP 130 / 76 (auto/); jmb 15:02 Pulse 58 MON; Pulse Ox 96% ; jmb 15:17 BP 131 / 74 (auto/); jmb 15:17 Pulse 58 MON; Pulse Ox 96% ; jmb 15:32 BP 135 / 89 (auto/); jmb 15:32 Pulse 62 MON; Pulse Ox 96% ; jmb 15:47 BP 123 / 78 (auto/); jmb 15:47 Pulse 56 MON; Pulse Ox 95% ; jmb 16:02 BP 128 / 75 (auto/); jmb 16:02 Pulse 56 MON; Pulse Ox 95% ; jmb 16:17 BP 121 / 72 (auto/); jmb 16:17 Pulse 60 MON; Pulse Ox 95% ; jmb 16:32 BP 126 / 79 (auto/); jmb 16:32 Pulse 58 MON; Pulse Ox 96% ; jmb 16:47 BP 124 / 80 (auto/); jmb 16:47 Pulse 58 MON; Pulse Ox 94% ; jmb 17:02 BP 124 / 81 (auto/); jmb 17:02 Pulse 58 MON; Pulse Ox 95% ; jmb 17:17 BP 126 / 75 (auto/); jmb 17:17 Pulse 58 MON; Pulse Ox 94% ; jmb 17:32 BP 126 / 77 (auto/); jmb 17:32 Pulse 58 MON; Pulse Ox 95% ; jmb 17:47 BP 120 / 73 (auto/); jmb 17:47 Pulse 54 MON; Pulse Ox 96% ; jmb 18:02 BP 125 / 76 (auto/); jmb 18:02 Pulse 56 MON; Pulse Ox 96% ; jmb 18:17 BP 130 / 82 (auto/); jmb 18:17 Pulse 58 MON; Pulse Ox 95% ; jmb 18:32 BP 130 / 79 (auto/); jmb 18:32 Pulse 52 MON; Resp 18; Temp 97.0(O); Pulse Ox 95% on R/A; Pain 0/10; jmb 12:36 Body Mass Index 27.98 (83.46 kg, 172.72 cm) kr3 MDM: 12:31 ECG WITH READING ER PHYS+CARDIAG ordered. EDMS 12:50 Aspirin Chewable Tablet 324 mg PO once ordered. ke 12:50 NS 0.9% 1000 ml IV at 100 mL/hr continuous ordered. ke 12:50 Nitrostat 0.4 mg Sublingual every 5 minutes; hold if SBP<90mmHg.Document Pain Score ke Response to Each Dose x3 ordered. 12:50 Umbrella Repairer/Pulse Ox/q 30 min VS ordered. ke 12:50 IV Saline Lock ordered. ke 12:50 Oxygen at 4L/Min NC or Home dosage ordered. ke 12:50 Rhythm Strip to chart ordered. ke 12:50 Undress patient appropriately for examination ordered. ke 12:51 Basic Metabolic Profile Ordered. EDMS 12:51 CBC with Diff Ordered. EDMS 12:51 Cardiac Injury Profile Ordered. EDMS 12:51 Troponin Ordered. EDMS 12:51 PT/INR Ordered. EDMS 12:52 portable chest Ordered. EDMS 13:28 Basic Metabolic Profile Reviewed. ke 13:28 CBC with Diff Reviewed. ke 13:28 Cardiac Injury Profile Reviewed. ke 13:28 Troponin Reviewed. ke 13:28 PT/INR Reviewed. ke 13:30 Redraw CIP &Troponin (put time in details section) ordered. ke 13:30 Repeat EKG (put time details section) ordered. ke 13:36 Repeat EKG (put time details section) complete. jrd 13:36 Redraw CIP &Troponin (put time in details section) complete. jrd 13:36 TROPONIN Ordered. EDMS 13:36 CARDIAC INJURY PROFILE Ordered. EDMS 13:37 ECG WITH READING ER PHYS ordered. EDMS 13:59 [facility] Payment Agreement was scanned into [employer] and attached to record. jp5 13:59 Financial registration complete. jp5 18:37 TROPONIN Reviewed. ke 18:37 CARDIAC INJURY PROFILE Reviewed. ke 18:37 portable chest Reviewed. ke 06/30 08:04 T-Sheet-- Draft Copy was scanned into [employer] and attached to record. gb 13:07 ECG/EKG was scanned into [employer] and attached to record. gb Administered Medications: 06/29 13:08 Drug: Nitrostat 0.4 mg [Nitrostat 0.4 mg sublingual tablet (1 tabs)] Route: Sublingual; jjr 13:12 Follow up: Pain 10 Adult; Response: Pain is decreased pml 13:11 Drug: Aspirin 324 mg [aspirin 81 mg chewable tablet (4 tabs)] Route: PO; jjr 13:11 Drug: NS 0.9% 1000 ml [sodium chloride 0.9 % intravenous solution] Route: IV; Rate: 100 jjr mL/hr; Site: left antecubital; 13:16 Drug: Nitrostat 0.4 mg [Nitrostat 0.4 mg sublingual tablet (1 tabs)] Route: Sublingual; pml Signatures: Dispatcher [employer] EDMS Lizet Lemon, Reg Reg gb Shyam Townsend, REVIEW RN REVIEW RN Isabel Hernandez,RN RN kr3 Monalisa RubiRN RN Nasir Becker,NATHAN RN jmb Wily Troncoso, CHRISTOPHER GRANITE SETTER d Shiv Concepcion jp5 Maryann Saldana RN jjr The chart was reviewed and I authenticate all verbal orders and agree with the evaluation and treatment provided.Attachments: 13:59 [facility] Payment Agreement jp5 06/30 08:04 T-Sheet-- Draft Copy gb 13:07 ECG/EKG gb Chart Complete MTDD
--- NOTE | 2016-07-01 19:55 | EDDOCDS ---
Physician Documentation [facility] Name: Lorenzo Sprague Age: 55 yrs Sex: Male : 1960 Arrival Date: 06/29/2016 Time: 12:29 Bed 15 Private MD: Disposition: 06/29/16 18:41 Discharged to Home/Self Care. Impression: Chest pain, unspecified. - Condition is Stable. - Discharge Instructions: Nonspecific Chest Pain. - Medication Reconciliation, Local Pharmacy Hours form. - Follow up: Private Physician; When: 4 - 5 days; Reason: Recheck today's complaints, Continuance of care. Follow up: Lorenzo Carvalho; When: Call to arrange an appointment; Reason: Further diagnostic work-up, Recheck today's complaints, Continuance of care. - Problem is an ongoing problem. - Symptoms are unchanged. Historical: - Allergies: no known allergies; - Home Meds: 1. aspirin 81 mg Oral tab 1 tab once daily (Last dose: 06/29/2016) 2. Multivitamin Oral daily 3. med for cholerterol daily - PMHx: Hypercholesterolemia; - PSHx: none; - Social history: No barriers to communication noted, The patient speaks fluent [place], Smoking status: Patient states was never smoker of tobacco. - Family history: Not pertinent. - : The pt / caregiver states he / she is not on anticoagulants. Home medication list is obtained from the patient. - Exposure Risk Screening:: None identified. Vital Signs: 06/29 12:32 BP 142 / 87 (auto/); pml 12:34 Pulse 76 MON; Pulse Ox 95% ; pml 12:36 BP 142 / 87; Pulse 60; Resp 16; Pulse Ox 97% on R/A; Weight 83.46 kg / 184 lbs (R); kr3 Height 5 ft. 8 in. (172.72 cm) (R); 12:47 Pulse 64 MON; Pulse Ox 96% ; pml 12:47 BP 142 / 80 (auto/); pml 13:02 Pulse 62 MON; Pulse Ox 96% ; pml 13:02 BP 144 / 85 (auto/); pml 13:12 Pain 2/10; pml 13:16 Pulse 74 MON; Pulse Ox 94% ; pml 13:16 BP 118 / 69 (auto/); pml 13:17 Pulse 68 MON; Pulse Ox 94% ; pml 13:17 BP 117 / 70 (auto/); pml 13:32 Pulse 70 MON; Pulse Ox 95% ; pml 13:32 BP 112 / 62 (auto/); pml 13:47 Pulse 62 MON; Pulse Ox 96% ; pml 13:47 BP 108 / 69 (auto/); pml 14:02 Pulse 60 MON; Pulse Ox 95% ; pml 14:02 BP 102 / 69 (auto/); pml 14:17 Pulse 60 MON; Pulse Ox 96% ; pml 14:17 BP 107 / 73 (auto/); pml 14:32 BP 111 / 74 (auto/); jmb 14:32 Pulse 60 MON; Pulse Ox 96% ; jmb 14:48 BP 125 / 77 (auto/); jmb 14:48 Pulse 54 MON; Pulse Ox 95% ; jmb 15:02 BP 130 / 76 (auto/); jmb 15:02 Pulse 58 MON; Pulse Ox 96% ; jmb 15:17 BP 131 / 74 (auto/); jmb 15:17 Pulse 58 MON; Pulse Ox 96% ; jmb 15:32 BP 135 / 89 (auto/); jmb 15:32 Pulse 62 MON; Pulse Ox 96% ; jmb 15:47 BP 123 / 78 (auto/); jmb 15:47 Pulse 56 MON; Pulse Ox 95% ; jmb 16:02 BP 128 / 75 (auto/); jmb 16:02 Pulse 56 MON; Pulse Ox 95% ; jmb 16:17 BP 121 / 72 (auto/); jmb 16:17 Pulse 60 MON; Pulse Ox 95% ; jmb 16:32 BP 126 / 79 (auto/); jmb 16:32 Pulse 58 MON; Pulse Ox 96% ; jmb 16:47 BP 124 / 80 (auto/); jmb 16:47 Pulse 58 MON; Pulse Ox 94% ; jmb 17:02 BP 124 / 81 (auto/); jmb 17:02 Pulse 58 MON; Pulse Ox 95% ; jmb 17:17 BP 126 / 75 (auto/); jmb 17:17 Pulse 58 MON; Pulse Ox 94% ; jmb 17:32 BP 126 / 77 (auto/); jmb 17:32 Pulse 58 MON; Pulse Ox 95% ; jmb 17:47 BP 120 / 73 (auto/); jmb 17:47 Pulse 54 MON; Pulse Ox 96% ; jmb 18:02 BP 125 / 76 (auto/); jmb 18:02 Pulse 56 MON; Pulse Ox 96% ; jmb 18:17 BP 130 / 82 (auto/); jmb 18:17 Pulse 58 MON; Pulse Ox 95% ; jmb 18:32 BP 130 / 79 (auto/); jmb 18:32 Pulse 52 MON; Resp 18; Temp 97.0(O); Pulse Ox 95% on R/A; Pain 0/10; jmb 12:36 Body Mass Index 27.98 (83.46 kg, 172.72 cm) kr3 MDM: 12:31 ECG WITH READING ER PHYS+CARDIAG ordered. EDMS 12:50 Aspirin Chewable Tablet 324 mg PO once ordered. ke 12:50 NS 0.9% 1000 ml IV at 100 mL/hr continuous ordered. ke 12:50 Nitrostat 0.4 mg Sublingual every 5 minutes; hold if SBP<90mmHg.Document Pain Score ke Response to Each Dose x3 ordered. 12:50 Spoon Maker/Pulse Ox/q 30 min VS ordered. ke 12:50 IV Saline Lock ordered. ke 12:50 Oxygen at 4L/Min NC or Home dosage ordered. ke 12:50 Rhythm Strip to chart ordered. ke 12:50 Undress patient appropriately for examination ordered. ke 12:51 Basic Metabolic Profile Ordered. EDMS 12:51 CBC with Diff Ordered. EDMS 12:51 Cardiac Injury Profile Ordered. EDMS 12:51 Troponin Ordered. EDMS 12:51 PT/INR Ordered. EDMS 12:52 portable chest Ordered. EDMS 13:28 Basic Metabolic Profile Reviewed. ke 13:28 CBC with Diff Reviewed. ke 13:28 Cardiac Injury Profile Reviewed. ke 13:28 Troponin Reviewed. ke 13:28 PT/INR Reviewed. ke 13:30 Redraw CIP &Troponin (put time in details section) ordered. ke 13:30 Repeat EKG (put time details section) ordered. ke 13:36 Repeat EKG (put time details section) complete. jrd 13:36 Redraw CIP &Troponin (put time in details section) complete. jrd 13:36 TROPONIN Ordered. EDMS 13:36 CARDIAC INJURY PROFILE Ordered. EDMS 13:37 ECG WITH READING ER PHYS ordered. EDMS 13:59 [facility] Payment Agreement was scanned into [employer] and attached to record. jp5 13:59 Financial registration complete. jp5 18:37 TROPONIN Reviewed. ke 18:37 CARDIAC INJURY PROFILE Reviewed. ke 18:37 portable chest Reviewed. ke 06/30 08:04 T-Sheet-- Draft Copy was scanned into [employer] and attached to record. gb 13:07 ECG/EKG was scanned into [employer] and attached to record. gb Administered Medications: 06/29 13:08 Drug: Nitrostat 0.4 mg [Nitrostat 0.4 mg sublingual tablet (1 tabs)] Route: Sublingual; jjr 13:12 Follow up: Pain 10 Adult; Response: Pain is decreased pml 13:11 Drug: Aspirin 324 mg [aspirin 81 mg chewable tablet (4 tabs)] Route: PO; jjr 13:11 Drug: NS 0.9% 1000 ml [sodium chloride 0.9 % intravenous solution] Route: IV; Rate: 100 jjr mL/hr; Site: left antecubital; 13:16 Drug: Nitrostat 0.4 mg [Nitrostat 0.4 mg sublingual tablet (1 tabs)] Route: Sublingual; pml Signatures: Dispatcher [employer] EDMS Lizet Lemon, Reg Reg gb Shyam Townsend, CAMP GUARD CAMP GUARD Isabel Hernandez,RN RN kr3 Monalisa RubiRN RN Nasir Becker,NATHAN RN jmb Wily Troncoso, CHRISTOPHER COOK MAYONNAISE d Shiv Concepcion jp5 Maryann Saldana RN jjr The chart was reviewed and I authenticate all verbal orders and agree with the evaluation and treatment provided.Attachments: 13:59 [facility] Payment Agreement jp5 06/30 08:04 T-Sheet-- Draft Copy gb 13:07 ECG/EKG gb Chart Complete MTDD
--- NOTE | 2016-07-01 22:56 | ECGEPIP ---
Stationary ECG Study [facility] - ED Test Date: 2016-06-29 Pat Name: ARMANI LUO Department: Room: - Gender: M Pastry Cook: alisia : 1960 Requested By: ARELI IZQUIERDO Order Number: [id number] Reading MD: Blas Archibald Measurements Intervals [place] Rate: 49 P: 15 [place]: 169 QRS: 12 QRSD: 114 T: 3 QT: 431 QTc: 393 Interpretive Statements SINUS BRADYCARDIA INC RBBB Electronically Signed On 07-01-2016 22:56:09 EST by Blas Archibald
== END 2016-06-29 18:54 | disposition home or self-care (01) ==
LOC: M ED 12:29
DX: R07.9 Chest pain, unspecified (principal); E78.00 Pure hypercholesterolemia, unspecified; Z79.82 Long term (current) use of aspirin; Z79.899 Other long term (current) drug therapy

== ENCOUNTER → 2017-01-29 | Outpatient (CLI) | payer BC, OTHER ==
[2017-01-29 11:59] LABS: MEAN CORPUSCULAR HEMOGLOBIN 31.8 pg (27.0-33.0); MEAN CORPUSCULAR HGB CONC 34.7 g/dl (32.0-36.5); MEAN CORPUSCULAR VOLUME 91.6 fl (80.0-96.0); RED CELL DISTRIBUTION WIDTH 12.3 % (11.5-14.5); WHITE BLOOD COUNT 4.5 K/mm3 (4.0-10.0)
[2017-01-29 12:49] LABS: ALBUMIN 3.8 GM/DL (3.2-5.2); ALBUMIN/GLOBULIN RATIO 1.19 (1.00-1.93); ALKALINE PHOSPHATASE 52 U/L (45-117); ALT/SGPT 34 U/L (12-78); ANION GAP 10 MEQ/L (8-16); AST/SGOT 34 U/L (15-37); BILIRUBIN,TOTAL 0.6 MG/DL (0.2-1.0); BLOOD UREA NITROGEN 21 MG/DL (7-18); CALCIUM LEVEL 8.4 MG/DL (8.5-10.1); CARBON DIOXIDE LEVEL 24 MEQ/L (21-32); CHLORIDE LEVEL 107 MEQ/L (98-107); CHOLESTEROL LEVEL 151 MG/DL (<200); CREATININE FOR GFR 0.89 MG/DL (0.70-1.30); GLOMERULAR FILTRATION RATE > 60.0 (>56); GLUCOSE, FASTING 84 MG/DL (70-105); POTASSIUM SERUM 4.1 MEQ/L (3.5-5.1); SODIUM LEVEL 141 MEQ/L (136-145); TRIGLYCERIDES LEVEL 52 MG/DL (<150)
--- NOTE | 2017-01-29 13:03 | REP ---
PA and lateral chest: Comparison is 03/04/2015. The lung arboleda are clear. The cardiac size is normal The sonja, mediastinum, and bony thorax are unremarkable. Impression: Negative PA and lateral chest. There is no interval change. Signed by Carl Hall MD 01/29/2017 12:54 P
--- NOTE | 2017-01-31 21:38 | ECGEPIP ---
Stationary ECG Study [facility] Test Date: 2017-01-29 Pat Name: ARMANI LUO Department: Room: - Gender: M Assembler Erector: KATHRINE : 1960 Requested By: Kun Fuchs Order Number: [id number] Reading MD: Evelio Turk Measurements Intervals [place] Rate: 57 P: 37 [place]: 159 QRS: 47 QRSD: 118 T: 12 QT: 425 QTc: 417 Interpretive Statements SINUS BRADYCARDIA MODERATE INTRAVENTRICULAR CONDUCTION DELAY COMPARED TO THE LAST 3 TRACINGS IN THE SYSTEM, NO SIGNIFICANT CHANGES Electronically Signed On 01-31-2017 21:37:58 EDT by Evelio Turk
== END ==
LOC: M LAB 10:59
PROVIDERS: ATTEND Family Medicine
DX: D64.9 Anemia, unspecified (principal); R53.83 Other fatigue; N40.0 Benign prostatic hyperplasia without lower urinary tract symptoms

== ENCOUNTER → 2017-12-11 | Outpatient (CLI) | payer BC, OTHER ==
[2017-12-11 08:42] LABS: HEMATOCRIT 44.2 % (42.0-52.0); HEMOGLOBIN 15.4 g/dl (13.5-17.5); MEAN CORPUSCULAR HGB CONC 34.8 g/dl (32.0-36.5); MEAN CORPUSCULAR VOLUME 89.1 fl (80.0-96.0); PLATELET COUNT, AUTOMATED 195 10^3/uL (150-450); RED BLOOD COUNT 4.96 10^6/uL (4.30-6.10); RED CELL DISTRIBUTION WIDTH 12.2 % (11.5-14.5); WHITE BLOOD COUNT 5.2 10^3/uL (4.0-10.0)
[2017-12-11 09:14] LABS: TESTOSTERONE 536 NG/DL (241-827)
[2017-12-11 09:16] LABS: ALBUMIN 3.7 GM/DL (3.2-5.2); ALBUMIN/GLOBULIN RATIO 1.03 (1.00-1.93); ALKALINE PHOSPHATASE 60 U/L (45-117); ALT/SGPT 38 U/L (12-78); ANION GAP 8 MEQ/L (8-16); AST/SGOT 22 U/L (7-37); BILIRUBIN,TOTAL 0.6 MG/DL (0.2-1.0); BLOOD UREA NITROGEN 17 MG/DL (7-18); CALCIUM LEVEL 8.3 MG/DL (8.5-10.1); CARBON DIOXIDE LEVEL 28 MEQ/L (21-32); CHLORIDE LEVEL 108 MEQ/L (98-107); CHOLESTEROL LEVEL 154 MG/DL (<200); CHOLESTEROL RISK RATIO 3.208 (<5); CREATININE FOR GFR 0.97 MG/DL (0.70-1.30); GLOMERULAR FILTRATION RATE > 60.0 (>56); GLUCOSE, FASTING 88 MG/DL (70-100); HDL CHOLESTEROL 48 MG/DL (>40); LDL CHOLESTEROL 84.6 MG/DL (<100); NON-HDL-C 106 MG/DL; POTASSIUM SERUM 4.1 MEQ/L (3.5-5.1); PROSTATIC SPECIFIC AG MONITOR 3.18 NG/ML (< 4.0); SODIUM LEVEL 144 MEQ/L (136-145); THYROID STIMULATING HORMONE 0.867 uIU/ML (0.358-3.740); TOTAL PROTEIN 7.3 GM/DL (6.4-8.2); TRIGLYCERIDES LEVEL 107 MG/DL (<150)
[2017-12-11 09:34] LABS: ESTIMATED AVERAGE GLUCOSE 111 MG/DL (60-110); HEMOGLOBIN A1c 5.5 %
== END ==
LOC: M LAB 08:05
DX: R53.83 Other fatigue (principal)
CPT/HCPCS: 84403

== ENCOUNTER → 2018-10-01 | Outpatient (CLI) | payer BC, OTHER ==
[2018-10-01 09:21] LABS: HEMATOCRIT 46.3 % (42.0-52.0); HEMOGLOBIN 15.6 g/dl (13.5-17.5); MEAN CORPUSCULAR HEMOGLOBIN 30.8 pg (27.0-33.0); MEAN CORPUSCULAR HGB CONC 33.7 g/dl (32.0-36.5); MEAN CORPUSCULAR VOLUME 91.3 fl (80.0-96.0); PLATELET COUNT, AUTOMATED 205 10^3/uL (150-450); RED BLOOD COUNT 5.07 10^6/uL (4.30-6.10)
[2018-10-01 09:59] LABS: ALBUMIN 3.9 GM/DL (3.2-5.2); ALT/SGPT 31 U/L (12-78); BILIRUBIN,TOTAL 0.7 MG/DL (0.2-1.0); BLOOD UREA NITROGEN 20 MG/DL (7-18); CALCIUM LEVEL 8.5 MG/DL (8.5-10.1); CARBON DIOXIDE LEVEL 26 MEQ/L (21-32); CHLORIDE LEVEL 108 MEQ/L (98-107); CHOLESTEROL LEVEL 177 MG/DL (<200); CHOLESTEROL RISK RATIO 3.403 (<5); GLOMERULAR FILTRATION RATE > 60.0 (>56); GLUCOSE, FASTING 84 MG/DL (70-100); HDL CHOLESTEROL 52 MG/DL (>40); LDL CHOLESTEROL 103 MG/DL (<100); NON-HDL-C 125 MG/DL; POTASSIUM SERUM 4.1 MEQ/L (3.5-5.1); PROSTATIC SPECIFIC AG MONITOR 6.57 NG/ML (< 4.00); SODIUM LEVEL 140 MEQ/L (136-145); TESTOSTERONE 599 NG/DL (241-827); TOTAL 25(OH) VITAMIN D 26.9 NG/ML (30.0-100.0); TOTAL PROTEIN 7.5 GM/DL (6.4-8.2); TRIGLYCERIDES LEVEL 110 MG/DL (<150)
[2018-10-01 10:18] LABS: HEMOGLOBIN A1c 5.4 %
--- NOTE | 2018-10-01 19:24 | ECGEPIP ---
Stationary ECG Study [facility] Test Date: 2018-10-01 Pat Name: ARMANI LUO Department: Room: - Gender: M Network Operations Analyst: : 1960 Requested By: Kun Fuchs Order Number: [id number] Reading MD: Armani Carvalho Measurements Intervals [place] Rate: 53 P: 51 [place]: 169 QRS: 34 QRSD: 118 T: 5 QT: 415 QTc: 391 Interpretive Statements Sinus bradycardia IVCD. Marginal inferior ST/T-wave abnormalities No change from 01/29/17. Electronically Signed On 10-01-2018 19:24:23 EDT by Armani Carvalho
--- NOTE | 2018-10-02 03:19 | REP ---
Clinical: Fatigue . Comparison: 01/29/2017 . Technique: PA and lateral. Findings: The mediastinum and cardiac silhouette are normal. The lung arboleda are clear and without acute consolidation, effusion, or pneumothorax. The skeletal structures are intact and normal. Impression: 1. No acute cardiopulmonary process. Electronically Signed by Michael Vences MD 10/02/2018 03:11 A
== END ==
LOC: M LAB 08:34
PROVIDERS: ATTEND Family Medicine
DX: R53.83 Other fatigue (principal); E03.9 Hypothyroidism, unspecified

== ENCOUNTER → 2018-11-08 | Outpatient (CLI) | payer BC, OTHER | LOC: M LAB 07:21 | PROVIDERS: ATTEND Family Medicine | DX: Z12.5 Encounter for screening for malignant neoplasm of prostate (principal) ==

== ENCOUNTER → 2019-07-30 | Outpatient (CLI) | payer BC, OTHER ==
[2019-07-30 10:42] LABS: HEMATOCRIT 49.3 % (42.0-52.0); MEAN CORPUSCULAR HEMOGLOBIN 30.5 pg (27.0-33.0); MEAN CORPUSCULAR HGB CONC 32.5 g/dl (32.0-36.5); MEAN CORPUSCULAR VOLUME 93.9 fl (80.0-96.0); PLATELET COUNT, AUTOMATED 183 10^3/uL (150-450); RED BLOOD COUNT 5.25 10^6/uL (4.30-6.10); WHITE BLOOD COUNT 4.6 10^3/uL (4.0-10.0)
[2019-07-30 10:58] LABS: HEMOGLOBIN A1c 5.5 %
[2019-07-30 11:27] LABS: ALT/SGPT 37 U/L (12-78); BILIRUBIN,TOTAL 0.4 MG/DL (0.2-1.0); BLOOD UREA NITROGEN 21 MG/DL (7-18); CALCIUM LEVEL 8.8 MG/DL (8.5-10.1); CARBON DIOXIDE LEVEL 28 MEQ/L (21-32); CHLORIDE LEVEL 108 MEQ/L (98-107); CHOLESTEROL LEVEL 173 MG/DL (<200); CREATININE FOR GFR 0.96 MG/DL (0.70-1.30); GLOMERULAR FILTRATION RATE > 60.0 (>56); GLUCOSE, FASTING 94 MG/DL (70-100); HDL CHOLESTEROL 50 MG/DL (>40); LDL CHOLESTEROL 102 MG/DL (<100); NON-HDL-C 123 MG/DL; POTASSIUM SERUM 4.3 MEQ/L (3.5-5.1); PROSTATIC SPECIFIC AG MONITOR 4.84 NG/ML (< 4.00); SODIUM LEVEL 141 MEQ/L (136-145); TOTAL PROTEIN 7.4 GM/DL (6.4-8.2); TRIGLYCERIDES LEVEL 105 MG/DL (<150)
[2019-07-30 11:46] LABS: TESTOSTERONE 445 NG/DL (241-827)
== END ==
LOC: M LAB 08:48
PROVIDERS: ATTEND Family Medicine
DX: I10 Essential (primary) hypertension (principal)

== ENCOUNTER → 2020-12-16 | Outpatient (CLI) | payer BC, OTHER ==
[2020-12-16 08:05] LABS: HEMATOCRIT 49.3 % (42.0-52.0); HEMOGLOBIN 16.5 g/dl (13.5-17.5); MEAN CORPUSCULAR HEMOGLOBIN 30.7 pg (27.0-33.0); MEAN CORPUSCULAR HGB CONC 33.5 g/dl (32.0-36.5); MEAN CORPUSCULAR VOLUME 91.8 fl (80.0-96.0); PLATELET COUNT, AUTOMATED 198 10^3/uL (150-450); RED BLOOD COUNT 5.37 10^6/uL (4.30-6.10)
[2020-12-16 08:13] LABS: HEMOGLOBIN A1c 5.4 %
[2020-12-16 08:28] LABS: ALBUMIN 3.9 GM/DL (3.2-5.2); ALT/SGPT 38 U/L (12-78); BILIRUBIN,TOTAL 0.5 MG/DL (0.2-1.0); BLOOD UREA NITROGEN 17 MG/DL (7-18); CARBON DIOXIDE LEVEL 28 MEQ/L (21-32); CHLORIDE LEVEL 107 MEQ/L (98-107); CHOLESTEROL LEVEL 175 MG/DL (<200); CHOLESTEROL RISK RATIO 3.804 (<5); CREATININE FOR GFR 0.96 MG/DL (0.70-1.30); GLOMERULAR FILTRATION RATE > 60.0 (>49); GLUCOSE, FASTING 95 MG/DL (70-100); HDL CHOLESTEROL 46 MG/DL (>40); LDL CHOLESTEROL 105 MG/DL (<100); NON-HDL-C 129 MG/DL; POTASSIUM SERUM 4.3 MEQ/L (3.5-5.1); PROSTATIC SPECIFIC AG MONITOR 5.14 NG/ML (< 4.00); SODIUM LEVEL 140 MEQ/L (136-145); TOTAL PROTEIN 7.5 GM/DL (6.4-8.2); TRIGLYCERIDES LEVEL 120 MG/DL (<150)
--- NOTE | 2020-12-16 08:59 | REP ---
INDICATION: HTN, FATIGUE. COMPARISON: Multiple the latest 10/01/2018 FINDINGS: The superior mediastinal structures are midline. The cardiac silhouette is unremarkable in size, shape, and position. The diaphragmatic surfaces of the lungs are regular, and the costophrenic angles are clear. The pulmonary arboleda are clear. The imaged osseous structures are intact. IMPRESSION: There is no acute cardiopulmonary disease. <Electronically signed by Tenzin Spence > 12/16/20 0815
[2020-12-16 09:53] LABS: TESTOSTERONE 544 NG/DL (241-827)
--- NOTE | 2020-12-16 16:46 | ECGEPIP ---
[facility] Test Date: 2020-12-16 Pat Name: ARMANI LUO Department: Room: - Gender: Male Study Director: demetri : 1960 Requested By: Kun Fuchs Order Number: [id number] Reading MD: Tomy Dickens Measurements Intervals [place] Rate: 59 P: 32 MT: 158 QRS: 40 QRSD: 108 T: 18 QT: 404 QTc: 399 Interpretive Statements Sinus bradycardia Mild nonspecific QRS widening. Nonspecific ST abnormality. No significant change compared with 10/01/2018. Electronically Signed on 12-16-2020 16:46:10 EDT by Tomy Dickens
== END ==
LOC: M LAB 06:35
PROVIDERS: ATTEND Family Medicine
DX: E03.9 Hypothyroidism, unspecified (principal); R53.83 Other fatigue; I10 Essential (primary) hypertension

== ENCOUNTER → 2021-04-11 | Outpatient (CLI) | payer BC, OTHER ==
[2021-04-12 23:07] LABS: PSA TOTAL 3.7 ng/mL (0.0-4.0)
== END ==
LOC: M LAB 07:47
PROVIDERS: ATTEND Urology
DX: R97.20 Elevated prostate specific antigen [PSA] (principal)

== ENCOUNTER → 2021-11-23 | Outpatient (CLI) | payer BC, OTHER ==
[2021-11-23 08:15] LABS: HEMATOCRIT 46.8 % (42.0-52.0); MEAN CORPUSCULAR HEMOGLOBIN 32.2 pg (27.0-33.0); MEAN CORPUSCULAR HGB CONC 34.2 g/dl (32.0-36.5); MEAN CORPUSCULAR VOLUME 94.2 fl (80.0-96.0); PLATELET COUNT, AUTOMATED 168 10^3/uL (150-450); RED BLOOD COUNT 4.97 10^6/uL (4.30-6.10)
[2021-11-23 08:30] LABS: HEMOGLOBIN A1c 5.5 %
[2021-11-23 08:49] LABS: ALBUMIN 3.7 GM/DL (3.2-5.2); ALT/SGPT 38 U/L (12-78); BILIRUBIN,TOTAL 0.6 MG/DL (0.2-1.0); BLOOD UREA NITROGEN 18 MG/DL (7-18); CALCIUM LEVEL 9.2 MG/DL (8.8-10.2); CARBON DIOXIDE LEVEL 28 MEQ/L (21-32); CHLORIDE LEVEL 110 MEQ/L (98-107); CHOLESTEROL LEVEL 199 MG/DL (<200); CHOLESTEROL RISK RATIO 3.901 (<5); CREATININE FOR GFR 1.06 MG/DL (0.70-1.30); GLOMERULAR FILTRATION RATE > 60.0 (>49); GLUCOSE, FASTING 97 MG/DL (70-100); HDL CHOLESTEROL 51 MG/DL (>40); LDL CHOLESTEROL 124 MG/DL (<100); NON-HDL-C 148 MG/DL; POTASSIUM SERUM 4.1 MEQ/L (3.5-5.1); PROSTATIC SPECIFIC AG MONITOR 5.51 NG/ML (< 4.00); SODIUM LEVEL 144 MEQ/L (136-145); THYROID STIMULATING HORMONE 0.858 uIU/ML (0.358-3.740); TOTAL PROTEIN 7.4 GM/DL (6.4-8.2); TRIGLYCERIDES LEVEL 122 MG/DL (<150)
[2021-11-23 09:16] LABS: TESTOSTERONE 438 NG/DL (241-827); TOTAL 25(OH) VITAMIN D 27.2 NG/ML (30.0-100.0)
== END ==
LOC: M RAD 06:44
PROVIDERS: ATTEND Family Medicine
DX: R53.83 Other fatigue (principal); I10 Essential (primary) hypertension; E03.9 Hypothyroidism, unspecified

== ENCOUNTER → 2022-06-02 | Outpatient (CLI) | payer BC, OTHER ==
[2022-06-02 08:10] LABS: HEMATOCRIT 46.5 % (42.0-52.0); HEMOGLOBIN 15.7 g/dl (13.5-17.5); MEAN CORPUSCULAR HEMOGLOBIN 30.8 pg (27.0-33.0); MEAN CORPUSCULAR HGB CONC 33.8 g/dl (32.0-36.5); MEAN CORPUSCULAR VOLUME 91.2 fl (80.0-96.0); PLATELET COUNT, AUTOMATED 197 10^3/uL (150-450); WHITE BLOOD COUNT 5.7 10^3/uL (4.0-10.0)
[2022-06-02 08:26] LABS: HEMOGLOBIN A1c 5.1 % (4.0-6.0)
[2022-06-02 08:29] LABS: PROSTATIC SPECIFIC AG MONITOR 4.16 NG/ML (< 4.00)
[2022-06-02 08:31] LABS: ALBUMIN 3.8 G/DL (3.2-5.2); ALKALINE PHOSPHATASE 57 U/L (46-116); ALT/SGPT 30 U/L (7.0-40); AST/SGOT 27 U/L (<34); BILIRUBIN,TOTAL 0.6 MG/DL (0.3-1.2); BLOOD UREA NITROGEN 20 MG/DL (9-23); CALCIUM LEVEL 8.7 MG/DL (8.3-10.6); CARBON DIOXIDE LEVEL 23 MMOL/L (20-31); CHLORIDE LEVEL 107 MMOL/L (98-107); CHOLESTEROL LEVEL 153 MG/DL (<200); CHOLESTEROL RISK RATIO 3.46 (<5); CREATININE FOR GFR 1.01 MG/DL (0.70-1.30); GLOMERULAR FILTRATION RATE > 60.0 (>49); GLUCOSE, FASTING 92 MG/DL (74-106); HDL CHOLESTEROL 44.2 MG/DL (>40); LDL CHOLESTEROL 89.4 MG/DL (<100); NON-HDL-C 109 MG/DL; POTASSIUM SERUM 4.4 MMOL/L (3.5-5.1); SODIUM LEVEL 140 MMOL/L (136-145); TRIGLYCERIDES LEVEL 97 MG/DL (<150)
[2022-06-02 08:33] LABS: TESTOSTERONE 657 NG/DL (241-827)
[2022-06-02 08:55] LABS: THYROID STIMULATING HORMONE 1.035 uIU/ML (0.55-4.78)
== END ==
LOC: M RAD 07:00
PROVIDERS: ATTEND Family Medicine
DX: R53.83 Other fatigue (principal); I10 Essential (primary) hypertension; E03.9 Hypothyroidism, unspecified

== ENCOUNTER → 2022-06-26 | Outpatient (CLI) | payer BC, OTHER ==
[~2022-06-26] MED LIST: ERGO500029 PO; RAMI1CAP22 PO; SILD100T PO; SIMV20TA22 PO
== END ==
LOC: M LABSMTC 09:30
PROVIDERS: ATTEND Anesthesiology
DX: Z01.812 Encounter for preprocedural laboratory examination (principal); Z11.52 Encounter for screening for COVID-19

== ENCOUNTER 2022-06-28 07:27 | Day surgery (SDC) | payer BC, OTHER ==
[~2022-06-28] VITALS: Ht 172.7 cm; Wt 85.7 kg
[~2022-06-28 07:27] MED LIST changes: +NS 1,000 ML IV ONE
[2022-06-28] MEDS ORDERED: LIDOCAINE 2% 100MG/5ML SDV (FOR ANES.) As Ordered ONE (08:46)
[2022-06-28] MEDS ORDERED: propofoL 200 MG/20 ML VIAL As Ordered ONE (08:46)
[2022-06-28 09:14] VITALS: BP 120/65
== END 2022-06-28 09:16 | disposition home or self-care (01) ==
LOC: M OPP 07:27
PROVIDERS: ATTEND Internal Medicine Gastroenterology
DX: Z12.11 Encounter for screening for malignant neoplasm of colon (principal); K64.0 First degree hemorrhoids; K57.30 Diverticulosis of large intestine without perforation or abscess without bleeding; I10 Essential (primary) hypertension; E78.5 Hyperlipidemia, unspecified; Z79.899 Other long term (current) drug therapy

== ENCOUNTER → 2023-03-02 | Outpatient (CLI) | payer BC, OTHER ==
[~2023-03-02] MED LIST changes: -NS 1,000 ML IV ONE
[2023-03-02 08:40] LABS: HEMATOCRIT 46.7 % (42.0-52.0); HEMOGLOBIN 15.7 g/dl (13.5-17.5); MEAN CORPUSCULAR HGB CONC 33.6 g/dl (32.0-36.5); MEAN CORPUSCULAR VOLUME 92.1 fl (80.0-96.0); PLATELET COUNT, AUTOMATED 175 10^3/uL (150-450); RED BLOOD COUNT 5.07 10^6/uL (4.30-6.10); WHITE BLOOD COUNT 4.9 10^3/uL (4.0-10.0)
[2023-03-02 09:50] LABS: HEMOGLOBIN A1c 5.2 % (4.0-6.0)
[2023-03-02 12:16] LABS: ALBUMIN 3.7 G/DL (3.2-5.2); ALKALINE PHOSPHATASE 53 U/L (46-116); ALT/SGPT 26 U/L (7.0-40); AST/SGOT 18 U/L (<34); BILIRUBIN,TOTAL 0.8 MG/DL (0.3-1.2); BLOOD UREA NITROGEN 17 MG/DL (9-23); CALCIUM LEVEL 8.5 MG/DL (8.3-10.6); CARBON DIOXIDE LEVEL 27 MMOL/L (20-31); CHLORIDE LEVEL 107 MMOL/L (98-107); CHOLESTEROL LEVEL 141 MG/DL (<200); CHOLESTEROL RISK RATIO 2.86 (<5); CREATININE FOR GFR 0.85 MG/DL (0.70-1.30); GLOMERULAR FILTRATION RATE > 60.0 (>49); GLUCOSE, FASTING 80 MG/DL (74-106); HDL CHOLESTEROL 49.3 MG/DL (>40); LDL CHOLESTEROL 77.7 MG/DL (<100); NON-HDL-C 91.7 MG/DL; POTASSIUM SERUM 3.9 MMOL/L (3.5-5.1); PROSTATIC SPECIFIC AG MONITOR 3.91 NG/ML (< 4.00); SODIUM LEVEL 140 MMOL/L (136-145); TESTOSTERONE 542 NG/DL (241-827); THYROID STIMULATING HORMONE 0.847 uIU/ML (0.55-4.78); TOTAL PROTEIN 6.9 G/DL (5.7-8.2); TRIGLYCERIDES LEVEL 70 MG/DL (<150)
== END ==
LOC: M LAB 07:53
PROVIDERS: ATTEND Family Medicine
DX: R53.83 Other fatigue (principal); I10 Essential (primary) hypertension

== ENCOUNTER → 2023-05-23 | Outpatient (CLI) | payer BC, OTHER | LOC: M SLEEP 20:00 | PROVIDERS: ATTEND Physician Assistant | DX: R06.83 Snoring (principal) ==

== ENCOUNTER → 2023-12-05 | Outpatient (CLI) | payer BC ==
[~2023-12-05] MED LIST changes: -RAMI1CAP22 PO; +RAMI2.5C42 PO
[2023-12-05 07:26] LABS: HEMATOCRIT 46.2 % (42.0-52.0); MEAN CORPUSCULAR HEMOGLOBIN 31.4 pg (27.0-33.0); MEAN CORPUSCULAR HGB CONC 34.6 g/dl (32.0-36.5); MEAN CORPUSCULAR VOLUME 90.6 fl (80.0-96.0); PLATELET COUNT, AUTOMATED 193 10^3/uL (150-450); WHITE BLOOD COUNT 5.2 10^3/uL (4.0-10.0)
[2023-12-05 07:51] LABS: PROSTATIC SPECIFIC AG MONITOR 4.08 NG/ML (< 4.00)
[2023-12-05 07:54] LABS: ALBUMIN 3.8 G/DL (3.2-5.2); ALKALINE PHOSPHATASE 65 U/L (46-116); ALT/SGPT 29 U/L (7.0-40); AST/SGOT 23 U/L (<34); BILIRUBIN,TOTAL 0.6 MG/DL (0.3-1.2); BLOOD UREA NITROGEN 17 MG/DL (9-23); CALCIUM LEVEL 9.1 MG/DL (8.3-10.6); CARBON DIOXIDE LEVEL 26 MMOL/L (20-31); CHLORIDE LEVEL 110 MMOL/L (98-107); CHOLESTEROL LEVEL 147 MG/DL (<200); CHOLESTEROL RISK RATIO 2.96 (<5); CREATININE FOR GFR 0.95 MG/DL (0.70-1.30); GLOMERULAR FILTRATION RATE > 60.0 (>49); GLUCOSE, FASTING 97 MG/DL (74-106); HDL CHOLESTEROL 49.5 MG/DL (>40); LDL CHOLESTEROL 83.5 MG/DL (<100); NON-HDL-C 97.5 MG/DL; SODIUM LEVEL 140 MMOL/L (136-145); TRIGLYCERIDES LEVEL 70 MG/DL (<150)
[2023-12-05 07:55] LABS: THYROID STIMULATING HORMONE 0.942 uIU/ML (0.55-4.78)
[2023-12-05 07:56] LABS: TESTOSTERONE 610 NG/DL (241-827)
[2023-12-05 08:07] LABS: HEMOGLOBIN A1c 5.4 % (4.0-6.0)
== END ==
LOC: M LAB 06:22
PROVIDERS: ATTEND Family Medicine
DX: I10 Essential (primary) hypertension (principal); R53.83 Other fatigue

== ENCOUNTER → 2025-01-29 | Outpatient (CLI) | payer BC ==
[~2025-01-29] MED LIST changes: +PROHANCE 279.3MG/ML 15ML VIAL ONE
== END ==
LOC: M PLAIMG 08:13
PROVIDERS: ATTEND Urology
DX: R97.20 Elevated prostate specific antigen [PSA] (principal); N40.0 Benign prostatic hyperplasia without lower urinary tract symptoms; K40.20 Bilateral inguinal hernia, without obstruction or gangrene, not specified as recurrent; R93.89 Abnormal findings on diagnostic imaging of other specified body structures
CPT/HCPCS: 72197; A9576

== ENCOUNTER → 2025-03-20 | Outpatient (REF) | payer BC ==
[~2025-03-20] MED LIST changes: -PROHANCE 279.3MG/ML 15ML VIAL ONE
== END ==
LOC: M SMT 12:50
PROVIDERS: ATTEND Urology
DX: R97.20 Elevated prostate specific antigen [PSA] (principal)

== ENCOUNTER → 2025-03-20 | Outpatient (CLI) | payer BC ==
[2025-03-20 12:02] LABS: BASO # 0.0 10^3/uL (0.0-0.2); BASO % 0.4 % (0.0-1.0); EOS # 0.0 10^3/uL (0.0-0.5); EOS % 0.3 % (0.0-3.0); LYMPH # 1.2 10^3/uL (1.5-5.0); LYMPH % 15.8 % (24.0-44.0); MONO # 0.6 10^3/uL (0.0-0.8); MONO % 7.2 % (2.0-8.0); NEUTROPHILS # 5.8 10^3/uL (1.5-8.5); NEUTROPHILS % 76.0 % (36.0-66.0); PLATELET COUNT, AUTOMATED 183 10^3/uL (150-450)
[2025-03-20 12:13] LABS: INR 0.96
[2025-03-20 12:34] LABS: ALT/SGPT 25 U/L (7.0-40); AST/SGOT 23 U/L (<34); CALCIUM LEVEL 8.6 MG/DL (8.3-10.6); CARBON DIOXIDE LEVEL 25 MMOL/L (20-31); CHLORIDE LEVEL 107 MMOL/L (98-107); CHOLESTEROL LEVEL 155 MG/DL (<200); CHOLESTEROL RISK RATIO 3.21 (<5); CREATININE FOR GFR 0.88 MG/DL (0.70-1.30); GLOMERULAR FILTRATION RATE > 90.0 (>49); LDL CHOLESTEROL 88.8 MG/DL (<100); NON-HDL-C 106.8 MG/DL; POTASSIUM SERUM 4.0 MMOL/L (3.5-5.1); SODIUM LEVEL 140 MMOL/L (136-145); TRIGLYCERIDES LEVEL 90 MG/DL (<150)
== END ==
LOC: M LAB 09:58
PROVIDERS: ATTEND Internal Medicine Cardiovascular Disease
DX: Z01.810 Encounter for preprocedural cardiovascular examination (principal)

== ENCOUNTER → 2025-04-30 | Outpatient (REF) | payer BC ==
[2025-04-30 15:34] LABS: HEPATITIS C VIRUS ABY INDEX < 0.02 INDEX (<0.8)
== END ==
LOC: M LAB REF 14:19
PROVIDERS: ATTEND Internal Medicine
DX: Z23 Encounter for immunization (principal)